=== PATIENT | female | born 1935 | race Caucasian/White ===

== ENCOUNTER 2016-08-27 22:23 | Inpatient (IN) | payer OTHER ==
[~2016-08-27] VITALS: Ht 160 cm; Wt 84.1 kg
--- NOTE | ~2016-08-27 | D ---
[facility] [place] [address] DISCHARGE SUMMARY Name: CHERELLE GEORGE Room #: 302-P [facility]..#: [id number] Admission: 08/28/16 Attend Phys: Robert Pacheco MD Discharge: 09/03/16 Date of : 35 Report #: [id number] THIS REPORT FOR: //name// CC: Robert Perla DATE OF SERVICE: 09/03/2016 SUMMARY OF HISTORY AND PHYSICAL: The patient has longstanding morbid obesity with chronic edema/lymphedema in both of her legs with longstanding venous ulcers that periodically escape outpatient management, become infected, and require inpatient management for intravenous fluids, intravenous antibiotics, pulsatile lavage, and twice daily dressing changes by registered nursing level staff. She chronically attends Dr. Beckman wound care chronic at this hospital. She was prescribed medications for her legs, one of which she thinks was levofloxacin twice a day and the other she thinks was a water pill. She really is not sure what they were or how she took them. They were prescribed a week or so before she was admitted. She developed an upset stomach that progressed to nausea and reduced appetite and weight loss as the days passed on. She came to the Emergency Room because of generalized malaise, feeling bad all over, nauseated, lightheadedness and chills/rigors. Her review of systems was negative otherwise, except for addition intermittent lower abdominal discomfort. In the emergency room, her creatinine was elevated at 3.4 with a potassium of 7.0, bicarbonate 15 and a BUN of 18. She required admission for treatment of her acute renal failure and hyperkalemia in addition to further therapy regarding her chronic leg ulcers that had progressed to the point where she needed additional diuretic and antibiotics. SUMMARY OF HOSPITAL COURSE: She was admitted and seen by the nephrology service. She was given standard therapy for hyperkalemia in the emergency room. As she left the Emergency Room, her potassium had ready begun to diminish. Over the next several days, her kidney function parameters returned to normal and her potassium level also returned to its baseline in the upper limits of normal range. Attention was turned to her infected legs. Cultures were obtained that revealed diphtheroids with scant methicillin-sensitive Staphylococcus aureus that was resistant to levofloxacin and ciprofloxacin. It was also resistant to ampicillin, erythromycin and penicillin, but sensitive to all other antibiotics tested including cephalosporins. Urine culture was 30,000 colony-forming units per mL with normal genito-urethral elisa. Blood cultures were negative. [facility] [address] [place] [address] DISCHARGE SUMMARY Name: CHERELLE GEORGE Room #: 302-P [facility]#: [id number] Admission: 08/28/16 Attend Phys: Robert Pacheco MD Discharge: 09/03/16 Date of : 35 Report #: [id number] She steadily improved. Discharge planning was mildly complex in that initially she refused to consider any options except returning to her own home with home health. However, she then recognized the necessity for advanced wound care there was not available in her home and her wound care physician, Dr. Theo Beckman, emphasized the benefits of a pulsatile lavage for cleaning tremendous amount of debris off of the surface of her wounds. In the hospital, she did have several treatments that did remove tremendous amount of nonviable debris. She had been to the [facility] in [place], [place] and did not agree with the treatment she felt she received from their internet network specialist. She did agree to go to the [facility] in [place] once it was established that they had a different wound care physician. Both facilities are LT and offered the pulsatile lavage that she needed for to heal her chronic leg ulcers. She reported that arterial Dopplers of her legs had recently been normal in the [facility], so they were not repeated. She was followed by Dr. Checo Rodrigues who treated her multiple times in the past for complex multi-microbial infections of her legs from infectious disease standpoint. On the first night in the hospital, she did have to strain at the stool and did have bright red blood streaks on the stool. A rectal examination several days later showed a few hemorrhoidal tags, but no masses, and there was no blood on the exam on the gloved finger either. The red blood on the outside stool resolved and was not present after the third hospital day. She also reported severe dental problems and pain with a few remaining teeth in her mouth. Oral examination did show multiple severely damaged carious teeth, a bridge was in place in the anterior mouth, and movement of the bridge produced some discomfort. She did not want to take her bridge out because she felt she would not even be able to chew bread, so she chose to leave it in while in the hospital. LABORATORY AND DIAGNOSTIC DATA: A single view chest in the Emergency Department showed degenerative changes in both shoulders, ectasia of the aorta, and was otherwise normal and unchanged from 01/24/2014. Admitting creatinine was 3.4, but 3 days later was back to baseline of 1.3. Admitting BUN was 118 and at discharge was 44, with baseline being 35. Potassium was 7 on admission, 6 hours later was 5.5, and was 4.7 at discharge. Baseline potassium is 4.7. EGFR was 13 on admission, and back to the baseline of 43 at discharge. Lactic acid was normal at 1.6. WBCs were 8.8 thousand on admission, hemoglobin was 10.8 and after rehydration [facility] [address] [place] [address] DISCHARGE SUMMARY Name: CHERELLE GEORGE Zaheer Room #: 302-P [facility] IN ..#: [id number] Admission: 08/28/16 Attend Phys: Robert Pacheco MD Discharge: 09/03/16 Date of : 35 Report #: [id number] was 8.8. Albumin was 2.8 on admission and dropped to 2.1 the following day with rehydration. Absolute lymphocyte count with a white count of 8800 and 5.2% lymphocytes, absolute lymphocyte count was 457. The low albumin and lymphocyte count fit the criteria for severe malnutrition. MRSA screen of the nares was negative. Urinalysis was negative. Random urine sodium was 65 with the random urine creatinine of 46.4 on August 28 with a serum sodium of 135 and creatinine of 3.2 gave a calculated for a fractional excretion of sodium that was 3.3%. ADDENDMUM: DISCHARGE DIAGNOSES: 1. Nausea, anorexia and weight loss, apparently caused by medications. 2. Acute renal failure with acute hyperkalemia caused by the volume depletion and weight loss. 3. Sepsis criteria were met on admission with tachypnea of 22 (over 20), tachycardia of 102 (over 90), left shift with 80% segmented neutrophils and a known bilateral leg ulcer infection. 4. Bright red blood appeared in the stool early in admission and requires an outpatient evaluation. 5. Severe malnutrition. 6. Severe dental problems contributing to her malnutrition. 7. A 3 cm right ovarian cyst was identified on CT scan from 2015. 8. The patient does not tolerate nonsteroidal anti-inflammatory drugs medications because of reduced renal function in the past and hyperkalemia in the past. 9. Severe dental degeneration leading to pain and difficulty and eating a proper diet. 10. Severe bilateral degenerative shoulder disease noted on the chest x-ray. 11. Glaucoma. 12. Dry eyes. 13. Osteoporosis. 14. Severe chronic morbid obesity. 15. Other multiple medical problems as recorded in the history and physical. PLAN: 1. The patient is transferred to [facility] in [facility] for wound care in that location. 2. Please see the discharge forms for specifics regarding current medications. 3. After she is stable and released, she is to have an evaluation regarding the source of the blood in her stools - digital rectal [address] [address] DISCHARGE SUMMARY Name: ARIELCHERELLE L Room #: 302-P [facility] IN .R.#: [id number] Admission: 08/28/16 Attend Phys: Robert Pacheco MD Discharge: 09/03/16 Date of : 35 Report #: [id number] examination was negative. 4. She is to have the 3 cm cyst on the right ovary evaluated as an outpatient. 5. Instructions were given to the nursing staff on the day of discharge to have her return to my office 2 weeks after she returns to her own home, and to bring medication list and offer pill bottle medications to that appointment. By: [id number] Robert Pacheco MD /nt
--- NOTE | ~2016-08-27 | H ---
[facility] [place] [address] HISTORY AND PHYSICAL Name: CHERELLE GEORGE Room #: 302-P [facility]..#: [id number] Admission: 08/28/16 Attend Phys: Robert Pacheco MD Discharge: 09/03/16 Date of : 35 Report #: [id number] THIS REPORT FOR: //name// CC: Robert Perla DATE OF SERVICE: 08/28/2016 C/C: Acute renal failure on chronic kidney disease with persistently infected chronic ulcers of both legs. HISTORY OF PRESENT ILLNESS: The patient reports that she was in her usual state of health until she began taking her two new medications last week. One medication was an antibiotic, "my doctor felt my legs were infected" and the other medication was most likely a diuretic because "my legs were swollen." She reports she began having nausea and reduced appetite and weight loss as the days passed. She came to the Emergency Room with generalized malaise, feeling bad all over, nausea, lightheadedness and feeling chills. Her review of systems was negative other than intermittent lower abdominal discomfort. The patient thinks that her antibiotic may have been Levaquin 500 mg twice daily. In the Emergency Room, her creatinine was elevated at 3.4 with a potassium of 7.0, bicarbonate of 15 and a BUN of 18. She required admission for treatment of her acute renal failure and hyperkalemia. She has had mild chronic kidney disease in the past and has at times experienced a creatinine as high as 3.0, but they were always due to nonsteroidal medications or volume depletion from diuretics, and her creatinine responded. Please see Dr. Valerio's Nephrology dictation that reviews two previous Nephrology dictations/consultations at [facility] over the last several years. The patient has a complex social situation that predisposes her to difficulties in healing her leg wounds. Her home has been described by multiple home health agency registered nurses as being a hoarder type home with the floor covered except for only a small cleared passage inbetween objects which to walk on. A recent home health registered nurse reported that the patient does not elevate her legs all the time: she was found with her legs hanging down while she was sleeping on a couch. The patient had reported that she skips her diuretics frequently because it is difficult to get to the bathroom. When one leg is severely swollen and oozing, she will place it in a trash bag and then use that trash bag to keep from dripping fluid all over the floor. She has been advised continually for years to clean up her home [place] [address] HISTORY AND PHYSICAL Name: CHERELLE GEORGE Room #: 302-P [facility] IN ..#: [id number] Admission: 08/28/16 Attend Phys: Robert Pacheco MD Discharge: 09/03/16 Date of : 35 Report #: [id number] healthy living situation, but has steadfastedly declined. Other past medical problems: Her major medical problem is that of morbid obesity. This has led to chronic swelling and lymphedema of her lower extremities. This has also lead to chronic nonhealing ulcers in both legs. She has had multiple hospitalizations to treat these ulcers. She also has type 2 diabetes that is well managed, she takes Premarin for hot flashes, she has a history of rheumatoid arthritis for which she has taken Plaquenil with good results for many years. She has hypertension, hyperlipidemia, gastroesophageal reflux disease, chronic kidney disease stage III with an outpatient baseline creatinine, chronic kidney disease stage 3-4, with an estimated GFR of 27 in March 2016. She has mild anemia of chronic disease with a baseline hemoglobin of 9.8. Her estimated GFR in November was 54 and her hemoglobin at that time was 10.4. Severe malnutrition was present when she was admitted May 14. As a complication of her obesity, she has severe end-stage osteoarthritis of both knees and is not an operative candidate. She has chronic low back pain. NSAID medications caused hyperkalemia in the past because of her chronic kidney disease. Intertriginous skin fold inflammation is long standing. Diabetic neuropathy treated with gabapentin or Lyrica. Macrocytosis without alcohol use/hypothyroidism/or B12 deficiency. She has marked debility with marked disuse muscle atrophy. Glaucoma, dry eyes treated with Restasis, seborrheic dermatitis of the face, seasonal allergies, asymptomatic bacteriuria. ALLERGIES: SULFA. SOCIAL HISTORY: She lives alone in her own home, described above as that of a hoarder. She does not drink nor smoke. Her son is helpful. MEDICATIONS: The list that follows comes from a list that she brought to the office, June that she had written at home: Pioglitazone 15 mg 1/2 tablet daily, acetaminophen 650 mg as needed and tramadol 50 mg as needed. Prempro or estradiol 0.5mg/medroxyprogesterone prescribed by Ethan Lewis MD/[facility] [employer] [facility], actonel 35mg weekly on sundays, atorvastatin 20 mg, lisinopril 40 mg twice daily, furosemide 40 mg twice daily ( she skips it at home), Aciphex 20 mg before breakfast, fexofenadine 180 mg as needed for allergies, hydroxychloroquine 200 mg twice daily, aspirin 81 mg daily, diltiazem extended release capsule 120 mg daily. Restasis bid both eyes, Xalatan 0.005% O.U. HS. [facility] [address] [place] [address] HISTORY AND PHYSICAL Name: CHERELLE GEORGE Room #: 302-P [facility]#: [id number] Admission: 08/28/16 Attend Phys: Robert Pacheco MD Discharge: 09/03/16 Date of : 35 Report #: [id number] Supplements include Biotin, zinc, B12, vitamin C, vitamin D, a multivitamin, vitamin K 100 mcg. PHYSICAL EXAMINATION: GENERAL: Shows an 81-year-old female who is clearly not feeling well in her hospital bed. At the time I examined, she was alert and oriented. HEENT: Her oropharynx was dry. NECK: Negative. LUNGS: Clear. CARDIOVASCULAR: The heart tones were normal and regular. ABDOMEN: Soft and nontender to examination. EXTREMITIES: The lower extremities had freshly been dressed. The feet were not covered with the dressings, and the skin appeared shrunken and wrinkled with multiple areas of pealing thick dry flakes. The appearance was suggestive of arterial insufficiency. Nail bed blanching was difficult to observe. NEUROLOGIC: No focal neurological deficits were identified, although formal testing was not performed. ASSESSMENT: 1. Acute renal failure/hyperkalemia from nausea/not eating/or direct effect of the medication she started last week. 2. Chronically infected foul draining of bilateral leg ulcers. 3. Possible arterial insufficiency to both lower legs. 4. Inflammatory arthritis by history responding to Plaquenil. 5. Morbid obesity. 6. End-stage osteoarthritis of both knees and she is not an operative candidate. 7. Severe disuse muscle atrophy and weakness. 8. Sulfa allergy. 9. Other medical problems as mentioned above. PLAN: The patient is admitted and is being treated for her hyperkalemia. The nephrology service has been consulted for management of fluids and her acute on chronic renal insufficiency. She will be seen in infectious disease by Dr. Rodrigues, who has managed multiple infections of her ulcers in the past. She wishes full resuscitation should her arrest be witnessed; being in the hospital on telemetry, rapid detection of an arrest would occur and she is therefore made a full Code blue to be consistent with her wishes. She will also be seen by Dr. Theo Beckman, her vocational rehabilitation specialist. <ELECTRONICALLY SIGNED> By: Robert Pacheco MD 11/02/16 [id number] Robert Pacheco MD /nt
--- NOTE | ~2016-08-27 | HC ---
[facility] [place] [address] CONSULTATION Name: CHERELLE GEORGE Room #: 302-P [facility] IN ..#: [id number] Admission: 08/28/16 Attend Phys: Robert Pacheco MD Discharge: Date of : 35 Report #: [id number] THIS REPORT FOR: //name// CC: Robert Perla DATE OF SERVICE: 08/28/2016 REASON FOR CONSULTATION: Acute kidney injury and hyperkalemia. HISTORY OF PRESENT ILLNESS: This is an 81-year-old female who was admitted through the emergency room from home. She has a rather complex medical history. She tells me she has been feeling weak for the past several days, appetite has been down, intake of food and fluids has been down. She has had some difficulty passing urine. Her biggest problem has been that of chronic lymphedema and she has been getting care for that for a very long time. Legs are actually significantly smaller than they had been in the past. Upon presentation, her creatinine level in the emergency room is 3.4, with that her sodium is 132, potassium 7.0, bicarb 15, BUN was 118. She was treated for her hyperkalemia and a repeat check several hours later at 4:05 in the morning showed potassium is 5.5, bicarbonate was 16, BUN was 117, creatinine is down to 3.2. The patient is aware that she has previously had some acute kidney injury and has also been seen previously by a couple of members of my group. The last that I can find was a consultation by Dr. Perla in [address] Haro in 2012. At that point, they both documented that she had some chronic kidney disease, thought due to diabetes and hypertension. She has morbid obesity. In each case, she had acute kidney injury with creatinine level over 3, but then both times she showed improvement. She has not had any recent nonsteroidal exposure. She has had no contrast exposures. She says she has been taking her medications, but again intake of food and fluids has been down. She has had some difficulty voiding urine and notes that she probably has some urinary retention as she voids a couple of times each time she goes to the commode one shortly after the other because she realizes she has not emptied her bladder fully. PAST MEDICAL HISTORY: Longstanding diabetes and hypertension. She has chronic obesity. She has chronic lymphedema of both legs. She has been getting care of those through Dr. Theo Beckman of wound care. She has some chronic arthritis and arthralgias. MEDICATIONS: On admission include aspirin 81 mg daily, Restasis eyedrops, diltiazem 120 mg daily, Colace, estrogen daily, furosemide 40 mg daily, hydrocodone p.r.n., Xalatan eyedrops, tramadol 50 mg p.r.n. [address] [address] CONSULTATION Name: CHERELLE GEORGE Room #: 302-P [facility] IN M.R.#: [id number] Admission: 08/28/16 Attend Phys: Robert Pacheco MD Discharge: Date of : 35 Report #: [id number] ALLERGIES: SULFA which causes a rash and pruritus. FAMILY HISTORY: Noncontributory. SOCIAL HISTORY: The patient is currently single. She lives in a local house. She is able to get around with difficulty, but does take care of many of her own chores. She does her own cooking. She does have some help that comes on a regular basis. REVIEW OF SYSTEMS: Appetite has been down. She says she has been having problem with her teeth and her dentures and hence has had difficulty getting in as much food as she would like. Intake of fluids has also been down. She had some loose stools recently. No diarrhea overnight or this morning. She has urinary symptoms as noted above with retention of urine after voiding. She denies fevers, chills or sweats. She has mild dyspnea with exertion. No chest pain or palpitations. She says she gets her legs wrapped regularly and they are actually looking much better than they had historically. No recent change to her vision or hearing. PHYSICAL EXAMINATION: GENERAL: Elderly, chronically ill-appearing female lying supine, no distress at this time. VITAL SIGNS: Blood pressure 135/56, heart rate 106, temperature 99.0, oxygen saturation 99%. HEENT: Shows pupils are equal and reactive. Sclerae nonicteric. Oral mucosa is somewhat dry. NECK: Veins are not distended. Neck is supple, no adenopathy. CHEST: Fairly clear bilaterally. HEART: Regular rate and rhythm. ABDOMEN: Obese. There is an umbilical hernia present that is easily reduced and is mildly tender. Bowel sounds are present. She does not have substantial abdominal wall edema. I am unable to palpate organomegaly or masses. EXTREMITIES: Show chronic lymphedema changes both legs, they are wrapped from the ankle to the knee. The feet show very substantial wrinkling consistent with decrease in volume after chronic edema. Thighs show no edema at this time, although they continue to be very large. NEUROLOGIC: She is grossly intact. LABORATORY DATA: On initial presentation, sodium 132, potassium 7.0, chloride 102, bicarbonate 15, BUN 118, creatinine 3.4, calcium 9.7, total protein 7.5, albumin 2.8. On repeat at 0400, sodium 135, potassium 5.5, chloride 104, bicarbonate 16, BUN 117, creatinine 3.2, glucose 122, calcium 9.3. White count is 8.8, hemoglobin 10.8, hematocrit 32.8, platelets 253,000. Urinalysis from the emergency room; specific gravity 1.025, pH 5.5 with a negative dipstick. ASSESSMENT: [facility] [address] [place] [address] CONSULTATION Name: CHERELLE GEORGE Room #: 302-P [facility] IN [facility]#: [id number] Admission: 08/28/16 Attend Phys: Robert Pacheco MD Discharge: Date of : 35 Report #: [id number] 1. Acute hyperkalemia. Potassium levels very high on admission and is related to her volume depletion and acute kidney injury. She has not been on potassium supplementations. She has not been on potassium-sparing diuretics. She previously had been on an LUI inhibitor, but is not on that now. She was treated in the emergency room and a repeat potassium is much better. We will repeat again. 2. Acute kidney injury. This is on top of some chronic kidney disease. Most of the acute phase is due to use of diuretics to get her volume improved because of her lower extremities. This has left her somewhat in intravascularly dry. I cannot find evidence of nephrotoxic exposures or contrast exposures or nonsteroidals. 3. Chronic kidney disease, likely stage 3. She does not have proteinuria. There was nothing of remarkable findings in her urine, but she has demonstrated creatinine in the 1.3-1.5 range over the past 5-6 years, all consistent with chronic kidney disease 3. 4. Chronic lymphedema of lower extremities. The legs are actually fairly small at this time. We will make sure in giving her volume that we do not increase her edema that much. 5. Longstanding diabetes. 6. Prior hypertension. We will hold back on her antihypertensive medications at this time. 7. Morbid obesity. PLAN: 1. We will continue her current IV fluids, 80 mL an hour is fine. 2. Recheck potassium level. 3. Check fractional excretion of sodium. 4. We will hold her diuretics. 5. Repeat labs in the morning. 6. We will follow along closely in the care of this patient. <ELECTRONICALLY SIGNED> By: Harry Valerio MD 08/29/16 0853 [id number] Harry Valerio MD /nt
--- NOTE | ~2016-08-27 | EKG ---
[address] [place] [address] ELECTROCARDIOGRAM REPORT Name: GEORGECHERELLE L Room #: 302-P ADM IN M.R.#: [id number] Admission: 08/28/16 Attend Phys: Robert Pacheco MD Discharge: Date of : 35 Report #: [id number] THIS REPORT FOR: //name// [facility] ED Test Date: 2016-08-28 Test Time: 00:06:47 Pat Name: CHERELLE GEORGE Department: Room: 302 Gender: F Ammonia Technician: elena : 1935 Requested By: Morena Corbett Order Number: [id number] MD: Solo Rodrigues Measurements Intervals [employer] Rate: 83 P: MD: QRS: 21 QRSD: 90 T: 62 QT: 351 QTc: 413 Interpretive Statements Atrial fibrillation Minimal ST elevation, inferior leads Baseline wander in lead(s) V1 No previous ECG available for comparison Electronically Signed On 08-28-2016 8:23:26 [address] MANAGER by Solo Rodrigues [email or web address] <ELECTRONICALLY SIGNED> By: Solo Rodrigues MD 08/28/16 0823 D: 015 Solo Rodrigues MD /HUA
--- NOTE | ~2016-08-27 | HC ---
[facility] [place] [address] CONSULTATION Name: CHERELLE GEORGE Room #: 302-P ADM IN M.R.#: [id number] Admission: 08/28/16 Attend Phys: Robert Pacheco MD Discharge: Date of : 35 Report #: [id number] THIS REPORT FOR: //name// CC: Robert Perla DATE OF SERVICE: 08/28/2016 ATTENDING PHYSICIAN: Robert Pacheco MD. REASON FOR CONSULTATION: Stasis dermatitis, question cellulitis of legs. HISTORY OF PRESENT ILLNESS: The patient is an 81-year-old white woman known to me from multiple previous hospitalizations at [facility] and [facility]. The patient apparently has visited with Dr. Theo Beckman recently and she believes she was prescribed Levaquin 500 mg twice daily and another medication that started with letter C and she does not know the strength or what the medication was for. Anyways, she blamed these medications for what had happened to her. She had been on these drugs for some 3-4 days and now, she is admitted through the Emergency Room complaining of feeling unwell, extremely weak and found to be in acute kidney injury with significant azotemia and hyperkalemia. The patient lives by herself. She has some visiting nurse that replaced dressing on legs at intervals. She has chronic stasis dermatitis. Cultures of the leg ulceration had revealed Pseudomonas aeruginosa, MRSA on 01/2014. She had slow Enterobacter cloacae, Gemella and Stenotrophomonas maltophilia on 05/14/2016. PAST MEDICAL HISTORY: Previous episodes of cellulitis of lower extremities, chronic stasis dermatitis legs, diabetes mellitus. Chronic kidney disease. Morbid obesity. Rheumatoid arthritis, on hydroxychloroquine. Osteoporosis. B12 deficiency. Glaucoma. Dyslipidemia and atrial fibrillation. DRUG ALLERGIES: SULFA DRUGS, LUI WRAP. MEDICATIONS: She is currently on treatment with latanoprost eye drops, docusate, cyclosporine eye drops, tramadol p.r.n., insulin aspart a.c. and at bedtime, ondansetron p.r.n., nystatin topical, acetaminophen p.r.n., intravenous fluids, normal saline at 1000 mL every 12 hours, tramadol p.r.n., ondansetron p.r.n. as well as sodium bicarbonate were discontinued. Not on antibiotics currently. SOCIAL HISTORY: Lives by herself. She has nurse. No tobacco, no alcohol. REVIEW OF SYSTEMS: Denies nausea, vomiting. Extreme weakness and dehydration feeling. Legs are rather painful and she has been [place] [address] CONSULTATION Name: CHERELLE GEORGE Room #: 302-P [facility]#: [id number] Admission: 08/28/16 Attend Phys: Robert Pacehco MD Discharge: Date of : 35 Report #: [id number] a daily basis. PHYSICAL EXAMINATION: GENERAL: Chronically ill-appearing woman. VITAL SIGNS: Temperature 99, pulse 106, respirations 20, BP 135/56, O2 saturation 99% on room air. HEENMT: Head: Normocephalic and atraumatic. Pupils reactive. Mouth: Moist mucous membrane. NECK: Supple, no thyromegaly. LUNGS: Clear to auscultation. HEART: S1, S2. No gallop. ABDOMEN: Obese, soft, no masses or megaly, no abnormal tenderness. EXTREMITIES: Reveal stasis ulceration both legs, definitely worse compared to last time she was seen at [facility]. Erythematous changes on legs, no purulence noted. NEUROLOGIC: Grossly within normal limits. LABORATORY DATA: On admission, sodium 132, potassium 7, CO2 15, BUN 118, creatinine 3.4, glucose 82, albumin 2.8 g/dL. Repeat laboratory data today revealed sodium 135, potassium down to 5.5, BUN down to 117 and creatinine 3.2. WBC 8800, hemoglobin 10.8 g/dL, platelets 253,000. The white blood cell count differential revealed 86% neutrophils, 5% lymphocytes. MRSA by PCR pending. Urinalysis negative. MICROBIOLOGY DATA: Cultures were sent from leg wounds and they are pending at the time of this dictation; previously in 04/2016, the patient had Enterobacter cloacae and Stenotrophomonas maltophilia isolated from leg wounds. ASSESSMENT: 1. Stasis dermatitis ulceration, legs. 2. History of leg ulcer infection colonization with Enterobacter cloacae, Gemella species and Stenotrophomonas maltophilia. 3. Acute kidney injury. 4. Hyperkalemia, improved. 5. Malnutrition. SUGGESTIONS: Recommend intravenous fluids, continue local wound care with daily dressing changes, pressure dressings. We will cover for possibility of infection with Enterobacter and Pseudomonas and Stenotrophomonas maltophilia with Rocephin ceftazidime 1 g IV every 12 hours, local wound care per Dr. Theo Beckman. [facility] [address] [place] [address] CONSULTATION Name: CHERELLE GEORGE Room #: 302-P ADM IN M.R.#: [id number] Admission: 08/28/16 Attend Phys: Robert Pacheco MD Discharge: Date of : 35 Report #: [id number] Pacheco, thank you for requesting my suggestion. <ELECTRONICALLY SIGNED> By: Checo Rodrigues MD 08/28/16 1340 [id number] [id number] Checo Rodrigues MD /nt
[~2016-08-27 22:23] MED LIST: ACETAMINOPHEN325 M1 PO; ACIPHEX 20 MG T20 MG PO; ACTONEL 35 MG35 M1 PO; ACTONEL PO; ACTOS15 MG PO; ALLEGRA ALLERG180 MG PO; ALLEGRA180 MG PO; ALTACE PO; APAP500 PO; ATIVAN1 MG PO; AUGMENTIN 875-1 EACH PO; BIOTIN1 MG PO; BUMETANIDE 1 MG1 M1 PO; CALCIUM 500 +1 EAC5 PO; CALCIUM OYSTER500 MG PO; CALCIUM PO; CATHFLO ACT2 MG/VIAL INJECTION; CLOTRIMAZOLE-BE15 GM TOP; COLACE100 MG PO; DILTIAZEM ER120 M1 PO; DOXYCYCLINE 10100 M1 PO; DYNACIN100 MG PO; ECONAZOLE 1% CR30 G1 TP; ENOXAPARIN30 MG/0.1 SUBQ; ESTRACE0.5 MG PO; ESTRACE1 MG PO; FISH OIL 1,001000 M2 PO; FLUCONAZOLE 10100 MG PO; FUROSEMIDE 20 M20 M1 PO; FUROSEMIDE 20 M20 MG PO; Fluconazole PO; GLUCOPHAGE XR500 MG PO; HYDROCODON-ACE1 EA11 PO; HYDROCODON-ACE1 EAC7 PO; HYDROXYCHLOROQ200 M1 PO; IRON325 PO; K-DUR 20 MEQ T20 MEQ PO; LEVAQUIN 500 M500 M3 PO; LIPITOR 20 MG T20 M1 PO; LIPITOR10 MG PO; LIPITOR20 MG PO; LISINOPRIL40 MG PO; LORTAB 5 MG/5001 TA1 PO; LOW DOSE ASPIRI81 M1 PO; LYRICA100 MG PO; MEDROL2 MG PO; MEDROXYPROGEST2.5 MG PO; MELOXICAM7.5 MG PO; METFORMIN PO; MULTIVITAMINS PO; NAPROSYN500 MG PO; NEURONTIN 300300 M1 PO; NYAMYC15 GM TOP; NYSTATIN15 G1 TOP; PAXIL10 MG; PERCOCET 5-3251 EACH PO; PIPERACIL-TA3.375 GM IV; PROVERA2.5 MG PO; RESTASIS1 EACH OP; RESTASIS1 EACH OPHTHALMIC; TOBRADEX EYE DRO5 ML OP; TRAMADOL 50 MG50 MG PO; TRIAMCINOLONE A80 G2 TOP; VANCOMYCIN500 MG/VIA IV; VITAMIN C250 MG PO; VITAMIN D-32000 UNIT PO; VOLTAREN GEL 1100 G1 TOP; XALATAN2.5 ML OPHTHALMIC; ZANTAC 150MG T150 MG PO; ZINC50 M1 PO; ZINC50 MG PO
[2016-08-27 22:33] VITALS: BP 130/91
[2016-08-27 23:48] LABS: ABSOLUTE NEUTROPHILS 7.6 thou/uL (1.4-8.2); BASOPHILS 0.3 % (0.0-2.0); EOSINOPHILS 0.2 % (0.0-3.0); HEMATOCRIT 32.8 % (37.0-47.0); HEMOGLOBIN 10.8 gm/dL (12.0-15.0); LYMPHOCYTES 5.2 % (24.0-44.0); MCH 32.5 pg (26.0-34.0); MCV 98.6 fL (80.0-100.0); PLATELET COUNT 253 thou/uL (150-400); POLYS 86.3 % (36.0-66.0); RBC 3.33 mil/uL (4.20-5.00); WBC 8.8 thou/uL (4.0-11.0)
[2016-08-27 23:49] LABS: MANUAL DIFF NO
[2016-08-27 23:56] LABS: ALBUMIN 2.8 g/dL (3.4-5.0); CALCIUM 9.7 mg/dL (8.5-10.1); CREATININE 3.4 mg/dL (0.6-1.3); TOTAL BILIRUBIN 0.4 mg/dL (<0.1-1.0); TOTAL PROTEIN 7.5 g/dL (6.4-8.2)
[2016-08-28 00:22] LABS: URINE BILIRUBIN NEGATIVE (Negative); URINE BLOOD NEGATIVE (Negative); URINE COLOR YELLOW; URINE GLUCOSE-RANDOM* NEGATIVE (Negative); URINE KETONES NEGATIVE (Negative); URINE NITRITE NEGATIVE (Negative); URINE PROTEIN (DIPSTICK) NEGATIVE (Negative); URINE SPECIFIC GRAVITY 1.025 (1.003-1.035); URINE UROBILINOGEN 0.2 E.U./dl (0.2-1.0)
[2016-08-28] MEDS ORDERED: PREMPRO 0.3 MG1 EACH PO (03:24)
[2016-08-28] MEDS ORDERED: LASIX 40 MG TAB40 M2 PO (03:27)
[2016-08-28 04:41] LABS: CALCIUM 9.3 mg/dL (8.5-10.1); CREATININE 3.2 mg/dL (0.6-1.3); POTASSIUM 5.5 mmol/L (3.5-5.1)
[2016-08-28 08:13] VITALS: BP 135/56
[2016-08-28 15:15] VITALS: BP 124/50
[2016-08-28 18:11] LABS: URINE CREATININE-RANDOM* 46.4 mg/dL (Not Estab.)
[2016-08-28 20:00] VITALS: BP 99/49
[2016-08-29] VITALS: BP 106/45
[2016-08-29 04:00] VITALS: BP 127/61
[2016-08-29 05:53] LABS: ALBUMIN 2.1 g/dL (3.4-5.0); CALCIUM 8.8 mg/dL (8.5-10.1); PHOSPHORUS 3.1 mg/dL (2.5-4.9); POTASSIUM 5.4 mmol/L (3.5-5.1)
[2016-08-29 05:56] LABS: CREATININE 1.9 mg/dL (0.6-1.3)
[2016-08-29 07:05] LABS: HEMATOCRIT 26.1 % (37.0-47.0); MCH 32.9 pg (26.0-34.0); MCHC 33.7 % (28.0-37.0); MCV 97.5 fL (80.0-100.0); RBC 2.67 mil/uL (4.20-5.00); RDW 12.8 % (10.5-14.5); WBC 5.8 thou/uL (4.0-11.0)
[2016-08-29 07:07] LABS: HEMOGLOBIN 8.8 gm/dL (12.0-15.0)
[2016-08-29 09:41] VITALS: BP 109/54
[2016-08-29 13:14] VITALS: BP 120/59
[2016-08-29 16:35] VITALS: BP 135/73
[2016-08-29 21:56] VITALS: BP 107/56
[2016-08-30 03:20] VITALS: BP 115/59
[2016-08-30 06:30] LABS: ALBUMIN 1.9 g/dL (3.4-5.0); CALCIUM 8.9 mg/dL (8.5-10.1); CREATININE 1.3 mg/dL (0.6-1.3); PHOSPHORUS 2.5 mg/dL (2.5-4.9); POTASSIUM 5.4 mmol/L (3.5-5.1)
[2016-08-30 13:09] VITALS: BP 138/59
[2016-08-30 18:15] VITALS: BP 126/70
[2016-08-30 20:10] VITALS: BP 113/57
[2016-08-31 03:30] VITALS: BP 129/67
[2016-08-31 04:36] LABS: ALBUMIN 1.9 g/dL (3.4-5.0); CREATININE 1.3 mg/dL (0.6-1.3); PHOSPHORUS 2.5 mg/dL (2.5-4.9); POTASSIUM 5.1 mmol/L (3.5-5.1)
[2016-08-31 08:07] VITALS: BP 113/52
[2016-08-31 11:00] VITALS: BP 113/45
[2016-08-31 16:28] VITALS: BP 105/60
[2016-08-31 19:01] VITALS: BP 119/50
[2016-09-01 04:00] VITALS: BP 113/49
[2016-09-01 06:01] LABS: ALBUMIN 1.8 g/dL (3.4-5.0); CALCIUM 8.9 mg/dL (8.5-10.1); CREATININE 1.2 mg/dL (0.6-1.3); PHOSPHORUS 3.1 mg/dL (2.5-4.9); POTASSIUM 4.8 mmol/L (3.5-5.1)
[2016-09-01 10:41] VITALS: BP 105/55
[2016-09-01 12:50] VITALS: BP 119/56
[2016-09-01 16:00] VITALS: BP 116/73
[2016-09-01 21:00] VITALS: BP 103/61
[2016-09-02 06:00] VITALS: BP 122/72
[2016-09-02 06:17] LABS: ALBUMIN 1.9 g/dL (3.4-5.0); CALCIUM 8.6 mg/dL (8.5-10.1); CREATININE 1.2 mg/dL (0.6-1.3); POTASSIUM 4.7 mmol/L (3.5-5.1)
[2016-09-02 08:50] VITALS: BP 119/81
[2016-09-02 09:00] VITALS: BP 119/53
[2016-09-02 12:00] VITALS: BP 108/83
[2016-09-02 16:00] VITALS: BP 107/62
[2016-09-02] MEDS ORDERED: TORSEMIDE20 MG PO (16:31)
[2016-09-02] MEDS ORDERED: TRAMADOL 50 MG50 MG PO (16:31)
[2016-09-02] MEDS ORDERED: NYAMYC15 GM TOP (16:31)
[2016-09-02] MEDS ORDERED: ENOXAPARIN30 MG/0.1 SUBQ (16:31)
[2016-09-02] MEDS ORDERED: AMPICILLIN-SUL1.5 GM IV (16:35)
[2016-09-02] MEDS ORDERED: MORPHINE TOP (17:55)
[2016-09-02] MEDS ORDERED: [UNRECOGNIZED DRUG - OTHER] TOP (17:55)
[2016-09-02 21:10] VITALS: BP 117/60
[2016-09-03 04:39] VITALS: BP 124/60
[2016-09-03 09:08] VITALS: BP 102/54
== END 2016-09-03 13:45 | DRG 682 ==
LOC: ER 22:23 → EROBS 08-28 00:15 → 3N 08-28 00:15
PROVIDERS: Hospitalist; Internal Medicine; Internal Medicine Nephrology; Physician Assistant
DX: N17.9 Acute kidney failure, unspecified (principal); E43 Unspecified severe protein-calorie malnutrition; L03.116 Cellulitis of left lower limb; L03.115 Cellulitis of right lower limb; L98.499 Non-pressure chronic ulcer of skin of other sites with unspecified severity; R11.0 Nausea; E78.5 Hyperlipidemia, unspecified; I48.91 Unspecified atrial fibrillation; H40.9 Unspecified glaucoma; G89.29 Other chronic pain; D64.9 Anemia, unspecified; E87.5 Hyperkalemia; E66.01 Morbid (severe) obesity due to excess calories; I89.0 Lymphedema, not elsewhere classified; Z60.2 Problems related to living alone; M17.0 Bilateral primary osteoarthritis of knee; I87.2 Venous insufficiency (chronic) (peripheral); M54.5 Low back pain; E11.40 Type 2 diabetes mellitus with diabetic neuropathy, unspecified; M81.0 Age-related osteoporosis without current pathological fracture; I10 Essential (primary) hypertension; F41.9 Anxiety disorder, unspecified; M06.9 Rheumatoid arthritis, unspecified; Z88.8 Allergy status to other drugs, medicaments and biological substances; Z86.14 Personal history of Methicillin resistant Staphylococcus aureus infection; Z79.899 Other long term (current) drug therapy; Z79.82 Long term (current) use of aspirin; Z68.32 Body mass index [BMI] 32.0-32.9, adult; Z88.2 Allergy status to sulfonamides; I12.9 Hypertensive chronic kidney disease with stage 1 through stage 4 chronic kidney disease, or unspecified chronic kidney disease; N18.3 Chronic kidney disease, stage 3 (moderate)
CPT/HCPCS: 10096

== ENCOUNTER → 2016-11-18 | Outpatient (CLI) | payer OTHER ==
[~2016-11-18] MED LIST changes: +AMPICILLIN-SUL1.5 GM IV; +LASIX 40 MG TAB40 M2 PO; +MORPHINE TOP; +PREMPRO 0.3 MG1 EACH PO; +TORSEMIDE20 MG PO; +[UNRECOGNIZED DRUG - OTHER] TOP
== END ==
LOC: HYPER 11-13 11:43
DX: I87.333 Chronic venous hypertension (idiopathic) with ulcer and inflammation of bilateral lower extremity (principal); E11.622 Type 2 diabetes mellitus with other skin ulcer; L97.812 Non-pressure chronic ulcer of other part of right lower leg with fat layer exposed; L97.821 Non-pressure chronic ulcer of other part of left lower leg limited to breakdown of skin; I89.0 Lymphedema, not elsewhere classified; M19.90 Unspecified osteoarthritis, unspecified site; E11.42 Type 2 diabetes mellitus with diabetic polyneuropathy; M06.9 Rheumatoid arthritis, unspecified; I48.91 Unspecified atrial fibrillation; E78.5 Hyperlipidemia, unspecified; E66.01 Morbid (severe) obesity due to excess calories; M81.0 Age-related osteoporosis without current pathological fracture; E11.22 Type 2 diabetes mellitus with diabetic chronic kidney disease; N18.9 Chronic kidney disease, unspecified

== ENCOUNTER 2016-12-12 18:00 | Inpatient (IN) | payer OTHER ==
[~2016-12-12] VITALS: Ht 160 cm; Wt 99.6 kg
--- NOTE | ~2016-12-12 | D ---
[facility] [place] [address] DISCHARGE SUMMARY Name: CHERELLE GEORGE Room #: 433-I [facility] IN ..#: [id number] Admission: 12/12/16 Attend Phys: Robert Pacheco MD Discharge: 12/17/16 Date of : 35 Report #: [id number] THIS REPORT FOR: //name// CC: Roxana Mike Beckman MD DATE OF SERVICE: 12/17/2016 SUMMARY OF HISTORY AND PHYSICAL: This was one of many hospitalizations for the patient because of chronic bilateral lower leg ulcers and lymphedema and cellulitis. Several days prior to admission, her leg swelling had increased along with redness and warmth in the formation of a spontaneous purulent discharge. Her home health nurse saw her early on the day of admission and sent her to the Emergency Department. She was found to have increased swelling, and redness, open ulcers and increased pain in her legs, as well as a purulent discharge and was felt to have acute cellulitis and infection of both legs and required admission for intravenous medications, aggressive topical treatments to the legs and intravenous antibiotics. She was also noted to have a change in creatinine that fit the criteria of acute renal failure as well as hyperkalemia. These medical problems also mandated in hospital therapy. SUMMARY OF HOSPITAL COURSE: She was seen on the day of admission by her pulmonary disease specialist, Dr. Theo Beckman. He found her to have chronic ulcerations on the left greater than the right with involvement of the fat layer of the left leg, limited to the skin on the right leg. He found chronic venous insufficiency with edema. He noted that the patient was experiencing pain in her legs and had refused pulse lavage. He ordered morphine and Silvadene compounded cream to both lower extremities and detailed wound care dressings. He ordered Kerlix and Marcos from toes to knee to help with the edema. He agreed with IV antibiotics and added protein supplementation for healing and pain. The following day, she had improved simply with her legs being elevated and wrapped. She complained about her nursing care without any specifics. She also complained about the school system, that no longer where children being taught how to write cursive, and expressed general unhappiness with the world. She did however thinks that the oranges that came with her lunch were tasty. Vancomycin dosing was directed by the Pharmacy Department. The following day, she praised the nursing staff for the care that she had received during her entire stay up to that point. On 12/16/2016, she allowed pulse lavage to be performed and was very pleased with the results. She had [address] [address] DISCHARGE SUMMARY Name: CHERELLE GEORGE Zaheer Room #: 433-I [facility] IN M.R.#: [id number] Admission: 12/12/16 Attend Phys: Robert Pacheco MD Discharge: 12/17/16 Date of : 35 Report #: [id number] special words of praise for the staff member who performed her pulse lavage. She was given intravenous fluids on admission without other specific therapy. Her creatinine normalized as did her serum potassium. Arrangements were made for her to return to the [facility]. She did acknowledge that she had refused pulse lavage on her hospital day #1 even though intravenous morphine was available as an analgesic. LABORATORY DATA: Blood cultures were negative and cultures of the legs grew Pseudomonas aeruginosa that was sensitive to all antibiotics tested. She also grew diphtheroids, presumed sensitive to multiple antibiotics. Note is made that the Gram stain showed rare WBCs, a few squamous epithelial cells, rare gram-negative rods and a few gram-positive rods. Her potassium on admission was 5.8 and with rehydration with intravenous fluids it normalized by the time of discharge at 5.1 (3.5-5.1 in our institution). Her creatinine was elevated at 1.8 on admission, with rehydration returned to baseline, actually slightly lower than the baseline of 1.2 to a value of 1.1 prior to discharge, this qualifies for the greater than 0.3 change in creatinine to qualify to determine acute renal failure. Her eGFR was 27 on admission and 48 at discharge. Her albumin measured after rehydration was low at 2.4, qualifying for severe malnutrition. On admission, her absolute lymphocyte count was 14% of 8400, or 1176, also fulfilling the criteria for severe malnutrition with lymphopenia under 1500. Hemoglobin was 10.3 on admission and 10.4 at discharge. She was not transfused. Vancomycin random level was not elevated at 13 and the culture returned pseudomonas, the vancomycin was discontinued. Portable chest x-ray was normal. She did have the PICC line placed by the IV team. DISCHARGE DIAGNOSES: 1. Acute renal failure that resolved with IV fluid replacement. 2. Volume depletion, resolved with IV fluid replacement. 3. Hyperkalemia, resolved with IV fluid replacement. 4. Chronic kidney disease stage 3--stable after fluid volume returned to normal. 5. Chronic kidney disease/diabetes: 6. She is prone to hyperkalemia and does not tolerate nor need potassium replacement. She also is sensitive to NSAID medications, and will develop reduction in renal function as well as an increase in potassium if she is given NSAID medications. 7. Severe malnutrition was present on admission, and revealed with intravenous [facility] [address] [place] [address] DISCHARGE SUMMARY Name: CHERELLE GEORGE Room #: 433-I [facility]#: [id number] Admission: 12/12/16 Attend Phys: Robert Pacheco MD Discharge: 12/17/16 Date of : 35 Report #: [id number] fluid replacement. 8. Pseudomonas aeruginosa infection of the left leg. 9. Bilateral chronic ulcers. 10. Noncompliance has been documented by the home health nursing staff with elevation (she allows her legs to dangle and swell) and sodium restriction for her swelling (commonly home health staff documents presence of a high sodium food on their visit). 11. Type 2 diabetes that is actually well controlled. 12. Chronic morbid obesity. 13. Chronic lymphedema of both lower legs. 14. History of MRSA and Enterococcus faecalis (sensitive to ampicillin and vancomycin) on 01/24/2014. 15. She is on hormone replacement therapy by her rolled seat trimmer. 16. Longstanding morbid obesity. 17. Longstanding venous insufficiency. 18. Poor home situation that she perpetuates. Her floor is cluttered and has the appearance of being a hoarder. 19. At times her personality and behavior has been confrontational to the health care workers that visit her at home, as well as occasionally health care workers in the hospital setting, and health care worker in outpatient physician office setting. 20. Bright red blood in the stool on 08/28/2016 admission--she has not scheduled her colonoscopy to determine the source of the bleeding, although it has been discussed with her and the contact telephone numbers have been given to her. 21. Note is made that her rectal examination on the hospital stay was negative except for few small hemorrhoidal tags and that the bright red blood in the stool persisted only for 2 to 3 days on that hospital stay. 22. 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 23. She reports normal arterial Dopplers of the legs in the [facility] physician office complex in July 2016. 24. She often does not take her diuretics because of the difficulty she has getting to the bathroom. 25. If her leg is severely swollen and oozing she will place it in a trash bag using the trash bag to keep the fluid from dripping all over the floor of her home. 26. Her Premarin is prescribed by her rolled seat trimmer, Dr. Ethan Lewis of [facility] Review Trainer Department for hot flashes. 27. She reports a history of rheumatoid arthritis, that is benefited by Plaquenil. 28 Hypertension. 29. Hyperlipidemia. 30. GERD. 31. Anemia of chronic disease. 32. Macrocytosis. 33. History in the past of episodes of severe malnutrition. [address] [address] DISCHARGE SUMMARY Name: CHERELLE GEORGE Room #: 433-I [facility].#: [id number] Admission: 12/12/16 Attend Phys: Robert Pacheco MD Discharge: 12/17/16 Date of : 35 Report #: [id number] 34. Morbid obesity with a BMI of 38, calculated by her information given in her August hospital stay. 35. Dry eyes. 36. Glaucoma. 37. Chronic low back pain. 38. Intermittent intertriginous skin fold inflammation from her abdominal pannus. 39. Diabetic neuropathy treated with gabapentin and/or Lyrica. 40. History of asymptomatic bacteriuria. 41. Seborrheic keratosis of the face. 42. 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 43. Severe disuse muscle atrophy and debility. 44. Osteoporosis. 45. Symptomatic restless legs symptoms. 46. SULFA allergy. 47. Grade 2 systolic ejection murmur is stable. DISCHARGE PLANS: She is discharged to [facility] facility. She is to get pulse lavage, and she is instructed to insist that it be started on a timely fashion. She is to get physical therapy and occupational therapy as well as continue intravenous medications and antibiotics. MEDICATIONS: Morphine 2 mg IV every 4 hours as needed for pain and for pretreatment for her pulse lavage, Toradol 50 mg 1 every 4 hours as needed for pain. Vitamin C 500 mg once daily for her nutritional status and she is also to have a full protein powder packet once daily for her nutritional status. Diltiazem extended release 120 mg once daily for blood pressure, 81 mg of aspirin daily, stool softener once daily. Cyclosporine eyedrops 1 drop in each eye twice daily for dry eyes. Latanoprost (Xalatan) one drop each eye at bedtime, zinc 50 mg daily for nutrition. Prempro 0.3/1.5 mg once daily, Lovenox 30 mg once daily, nystatin powder topically as needed for itching and intertriginous dermatitis, ampicillin and sulbactam 1.5 grams IV every 8 hours, Silvadene/morphine compounded ointment to both legs twice daily. She is to follow up with Dr. Theo Beckman in 2-4 weeks after returning home, she is to see me in my office 2 weeks after returning home, she is to make an appointment for colonoscopy with Dr. Dk Lazaro through his office, because of her episode of a toya rectal bleeding. By: [id number] Robert Pacheco MD /nt
--- NOTE | ~2016-12-12 | H ---
[facility] [place] [place] [address] HISTORY AND PHYSICAL Name: CHERELLE GEORGE Room #: 433-I [facility].#: [id number] Admission: 12/12/16 Attend Phys: Robert Pacheco MD Discharge: 12/17/16 Date of : 35 Report #: [id number] THIS REPORT FOR: //name// CC: Robert Pacheco DATE OF SERVICE: 12/13/2016 CHIEF COMPLAINT: Hyperkalemia, acute kidney injury and cellulitis. HISTORY OF PRESENT ILLNESS: This is one of many hospitalizations for the patient due to chronic bilateral lower leg ulcers and cellulitis. She is followed chronically by Dr. Theo Beckman in his wound clinic and please see his dictated consultation for more specific details. He saw her in his office approximately 2 weeks ago and at that time, both of her legs appeared to have open ulcerations, but no signs of cellulitis. Over the last several days prior to admission, her swelling increased, along with increased redness and warmth and the formation of a spontaneous discharge as well. Her home health nurse was concerned about this change and referred her to the emergency department. She was found to have oozing from her legs, the left more than the right and required admission for intravenous antibiotics and careful wound therapy. At the same time, she was also found to have an acute kidney injury or acute renal failure with a decrease in her kidney function as well as hyperkalemia. Because of these changes, admission is indicated. PAST MEDICAL HISTORY: She has had long-standing morbid obesity, that over the last 10 years has taken its toll. She has long-standing venous insufficiency and lymphedema of both of the lower legs. Skin breakdown began years ago and responded to more simple therapies, but over the last several years, has not been able to ever get completely healed. She makes progress. Unfortunately, she seems to be stuck in a cycle where her legs get worse, like they are now with the development of a eschar and purulent secretions, which are then cleaned and debrided with appropriate dressing changes begin to heal. This seems to then occur about the time she is ready to return to her own home from a facility. At that time, it seems like her gains are invariably lost sooner or later and the cycle starts again, with a worsened drainage, infection and cellulitis in her legs. Her home situation is difficult, is reported that the floor is cluttered, except for a few walking paths through her house, and that she has often been witnessed by home health visitors to sit or sleep with her legs dangling instead of with her legs elevated. Additionally, she has been found to have high salt-containing food in her home. Most recent hospital stay, she was constipated and after straining at the stool, developed blood in her stools. Rectal examination at the end hospital stay showed a few small hemorrhoidal tags that were not bleeding externally and no palpable abnormalities were identified inside the rectum either. There was no blood on the gloved finger. She has not had a colonoscopy in quite some time. [address] [address] HISTORY AND PHYSICAL Name: CHERELLE GEORGE Room #: 433-I [facility] IN ..#: [id number] Admission: 12/12/16 Attend Phys: Robert Pacheco MD Discharge: 12/17/16 Date of : 35 Report #: [id number] She reports her arterial Doppler of the legs was normal in [facility] physician group in July of 2016. It is also noted that frequently she does not take her diuretics because it is difficult for her to get to the bathroom. At times, if her leg is severely swollen and oozing, she will place it in a trash bag and use the trash bag to keep the fluid from dripping all over her floor. She has type 2 diabetes. She takes Premarin for hot flashes, prescribed by her compensator, Dr. Ethan Lewis of [facility]. She has a history of rheumatoid arthritis, controlled with Plaquenil. Hypertension, hyperlipidemia, GERD and chronic kidney disease stage 3 with an outpatient baseline creatinine of 1.1 to 1.3. Nonsteroidal anti-inflammatory medications have caused her creatinine and her potassium to go up in the past and as a result, she has been advised that she should not take them and has avoided NSAID medications. She has anemia of chronic disease, macrocytosis, history of severe malnutrition and morbid obesity with a BMI of 38, calculated by stated height of 5 feet 3 inches and a discharge weight last several months ago of 215 pounds. Dry eyes, glaucoma, severe end-stage osteoarthritis of both knees and she is not an operative candidate. Hyperlipidemia, chronic low back pain, history of chronic kidney disease that was stable at stage 4, chronically colonized leg ulcers with Enterococcus diphtheroids, Pseudomonas and MRSA at different times in the past. Intermittent intertriginous skin fold inflammation from her abdominal pannus; diabetic neuropathy, treated with gabapentin and/or Lyrica; asymptomatic bacteriuria; seborrheic keratosis of the face; macrocytosis without alcohol use without hypothyroidism and without B12 deficiency. Severe diffuse muscle atrophy and debility, osteoporosis and chronic low back pain. MEDICATIONS: List is in : Tramadol 50 mg 2-3 times daily, hydroxychloroquine 200 mg twice daily, lisinopril 40 mg twice daily, clonidine 0.5 mg at bedtime was recently discontinued by the patient, pioglitazone 15 mg one-half daily, atorvastatin 20 mg one-half tablets daily, 81 mg aspirin daily, furosemide 40 mg daily prescribed by Dr. Beckman, B12 at 1000 mcg daily, Biotin, fexofenadine, stool softener, vitamin D3 at 2000 units daily, zinc 50 mg daily, Tylenol 650 mg daily, vitamin C and vitamin E. Premarin. Latanoprost and Restasis. Lorazepam 0.5 mg 3 times daily as needed, Requip 0.5 mg once daily for restless legs. [address] [address] HISTORY AND PHYSICAL Name: CHERELLE GEORGE Room #: 433-I [facility].#: [id number] Admission: 12/12/16 Attend Phys: Robert Pacheco MD Discharge: 12/17/16 Date of : 35 Report #: [id number] ALLERGIES: SULFA. SOCIAL HISTORY: She does not drink or smoke. She lives in a home that has a very cluttered floor and it is difficult to get back and fourth to the bedroom and the restroom. REVIEW OF SYSTEMS: Negative, except for the HPI above. She does report that she has generalized discomfort because of the pain in her legs. PHYSICAL EXAMINATION: GENERAL: Shows an elderly female in her hospital bed. HEENT: Unremarkable. LUNGS: There is a soft grade 2 systolic ejection murmur and the lung lewis are clear. ABDOMEN: Soft, nontender, without significant rash. She is morbidly obese. EXTREMITIES: There is 3+ edema of both lower extremities. There is numbness in the feet. LABORATORY DATA: Her potassium is 5.8 and her BUN is 55, compared with the baseline of 30 and creatinine is 1.8, compared with the baseline of 1.1. Albumin is low at 2.4. NT-proBNP is mildly elevated at 545. WBCs are normal at 8.4 thousand; hemoglobin is 10.3, compared to a baseline of 9 and lymphocytes are low at 14%. MRSA nasal swab was negative. ASSESSMENT: 1. Acute cellulitis or extensive lower leg ulcers, the left leg much more so than the right. 2. Chronic edema of the lower extremities. 3. Type 2 diabetes, managed by diet and oral medication. 4. Controlled hypertension. 5. Venous insufficiency and lymphedema. 6. Morbid obesity. 7. Chronic kidney disease stage 3. 8. Acute renal failure with elevation of creatinine. 9. Acute hyperkalemia. 10. Dehydration. PLAN: She is admitted with intravenous fluids, intravenous saline. It is expected that her creatinine will improve and normalize and that the elevated potassium levels will do likewise as often in the past. She is started on vancomycin because of a distant history of MRSA leg infection. She has also started on ampicillin sulbactam IV. Her legs are to be elevated. She is [address] [address] HISTORY AND PHYSICAL Name: CHERELLE GEORGE Room #: 433-I [facility]#: [id number] Admission: 12/12/16 Attend Phys: Robert Pacheco MD Discharge: 12/17/16 Date of : 35 Report #: [id number] to be seen in wound consultation by Dr. Theo Becmkan. Gentle intravenous fluids will be given. Pulsetile lavage of the legs will be initiated. <ELECTRONICALLY SIGNED> By: Robert Pacheco MD 12/25/16 [id number] Robert Pacheco MD /nt
--- NOTE | ~2016-12-12 | H ---
[facility] [place] [address] HISTORY AND PHYSICAL Name: CHERELLE GEORGE Room #: 433-I ADM IN ..#: [id number] Admission: 12/12/16 Attend Phys: Robert Pacheco MD Discharge: Date of : 35 Report #: [id number] THIS REPORT FOR: //name// CC: Robert Pacheco DATE OF SERVICE: 12/13/2016 This is an established patient but new hospital visit. PERSONAL PHYSICIAN: Dr. Robert Pacheco. CHIEF COMPLAINT: Bilateral lower extremity cellulitis and open wounds. HISTORY OF PRESENT ILLNESS: This is an 81-year-old white female who has been a longstanding patient of mine for chronic lower extremity venous insufficiency and lymphedema, who has had multiple episodes of hospitalization for recurrent cellulitis and open ulcerations. I saw the patient approximately 2 weeks ago. The patient at that time had open ulcerations on the left greater than the right leg, but no signs of cellulitis. The patient states that over the past several days, she started having more swelling, increased redness and warmth. Her home health nurse felt that she need to be evaluated. The patient was sent to the Emergency Department and was admitted for cellulitis of the lower extremities. I have been asked to assist in the care of her wounds as well as her swelling. The patient states she does still have significant pain in both lower extremities, which is chronic for her. She describes it as a 10/10, worse with ambulation, better with elevation. PAST MEDICAL HISTORY: Significant for morbid obesity, chronic atrial fibrillation, diabetes mellitus, hypertension, venous insufficiency with chronic edema, lymphedema, anxiety and chronic kidney disease. CURRENT MEDICATIONS: Multiple, I reviewed the patient's medication list. DRUG ALLERGIES: NONSTEROIDAL INFLAMMATORIES and SULFA. FAMILY HISTORY: Not pertinent to current medical condition. REVIEW OF SYSTEMS: CONSTITUTIONAL: The patient denies fevers or chills. NEUROLOGIC: The patient complains of overall generalized weakness, but no associated isolated weakness in arms or legs. EYES: No complaints. ENT: No complaints. CARDIAC: The patient has chronic lower extremity edema, worse over the past several days. No chest pain or palpitation. RESPIRATORY: Denies shortness breath, cough or wheezes. [facility] [address] [place] [address] HISTORY AND PHYSICAL Name: CHERELLE GEORGE Room #: 433-I [facility] IN [facility]#: [id number] Admission: 12/12/16 Attend Phys: Robert Pacheco MD Discharge: Date of : 35 Report #: [id number] GASTROINTESTINAL: The patient denies nausea, vomiting or abdominal pain. GENITOURINARY: The patient denies urgency or frequency. MUSCULOSKELETAL: No complaints. SKIN: There are multiple superficial ulcerations on bilateral lower extremities, left much greater than right. PHYSICAL EXAMINATION: VITAL SIGNS: Stable. The patient is afebrile, T-max is 36.6. GENERAL: This is an alert and oriented x 3, morbidly obese white female who is in no acute distress. HEENT: Normocephalic, atraumatic. Mucous membranes are somewhat dry. Pupils are round. Sclerae are white. NECK: Without JVD or masses. LUNGS: Clear. HEART: Irregularly irregular with 2/6 systolic ejection murmur. ABDOMEN: Obese, soft, nontender. EXTREMITIES: The patient has 4+ edema in the bilateral lower extremities which is pitting. There is weeping noted from both lower extremities and on the left lower extremity there is a large full thickness ulceration which would be a mix of granulation tissue and yellow/green slough. There is no actual necrotic tissue; odor, there is a pseudopurulent drainage which is foul smelling. Multiple other superficial ulcerations are noted in the left lower extremity with areas of superficial bolus blisters. Distal neurovascular is otherwise intact. Bilateral heels are intact. Evaluation of right lower extremity revealed multiple superficial partial thickness ulcerations which are fairly clean and granulating. They have serosanguineous drainage without significant odor. NEUROLOGIC: Cranial nerves 2-12 are grossly intact. Motor and sensory grossly intact. LABORATORY VALUES: White count is 8.6, hemoglobin 9.5, potassium is elevated at 5.8. IMPRESSION: 1. Chronic ulcerations, bilateral lower extremities, left greater than right with involvement of fat layer on the left lower extremity and limited to skin on the right lower extremity. 2. Chronic venous insufficiency with edema. 3. Chronic lymphedema. 4. Diabetes mellitus type 2. 5. Cellulitis, bilateral lower extremities, left greater than right. 6. History of protein-calorie malnutrition. 7. Morbid obesity. 8. Generalized debility. PLAN: At this time, Dr. Pacheco initially had ordered pulse lavage on the patient [address] [address] HISTORY AND PHYSICAL Name: CHERELLE GEORGE Room #: 433-I ADM IN ..#: [id number] Admission: 12/12/16 Attend Phys: Robert Pacheco MD Discharge: Date of : 35 Report #: [id number] to help with the debridement of these ulcerations; however, the patient told me that she does not think she can tolerate pulse lavage at this time. We will start her on morphine, Silvadene cream to both lower extremities, cover this with Xeroform gauze, ABD, Kerlix and Marcos from toes to knee for control of edema as well as morphine, Silvadene for healing and pain control. Continue with IV antibiotics under the care of Dr. Pacheco as well as we will plan on the next couple of days doing pulse lavage once the initial discomfort has resolved. We will make sure that we maximize the patient's oral supplementation of protein for healing and pain. We will also make sure we will attempt to maximize the patient's physical and occupational therapy for her overall generalized debility. , I appreciate the ability to consult on this patient. We will continue to follow her. By: [id number] [id number] Theo Beckman MD /nt
--- NOTE | ~2016-12-12 | EKG ---
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
[2016-12-12 18:04] VITALS: BP 140/78
[2016-12-12 20:59] LABS: HEMATOCRIT 31.1 % (37.0-47.0); HEMOGLOBIN 10.3 gm/dL (12.0-15.0); MCH 31.9 pg (26.0-34.0); MCHC 33.2 g/dL (28.0-37.0); MCV 95.9 fL (80.0-100.0); PLATELET COUNT 174 thou/uL (150-400); RBC 3.24 mil/uL (4.20-5.00); RDW 13.2 % (10.5-14.5); WBC 8.4 thou/uL (4.0-11.0)
[2016-12-12 21:02] LABS: MANUAL DIFF YES
[2016-12-12 21:14] LABS: CALCIUM 8.7 mg/dL (8.5-10.1); CREATININE 1.8 mg/dL (0.6-1.0); POTASSIUM 5.8 mmol/L (3.5-5.1)
[2016-12-12 21:21] LABS: ABSOLUTE NEUTROPHILS 5.5 thou/uL (1.4-8.2); TOTAL CELL COUNT 100
[2016-12-12 21:23] LABS: ANISOCYTOSIS 1+
[2016-12-12 23:55] VITALS: BP 120/59
[2016-12-13 00:10] VITALS: BP 96/40
[2016-12-13 03:50] VITALS: BP 110/59
[2016-12-13 04:59] LABS: HEMATOCRIT 28.4 % (37.0-47.0); HEMOGLOBIN 9.5 gm/dL (12.0-15.0); MCH 32.1 pg (26.0-34.0); MCHC 33.3 g/dL (28.0-37.0); MCV 96.6 fL (80.0-100.0); RBC 2.94 mil/uL (4.20-5.00); RDW 13.2 % (10.5-14.5); WBC 8.6 thou/uL (4.0-11.0)
[2016-12-13 05:14] LABS: CALCIUM 8.5 mg/dL (8.5-10.1); CREATININE 1.5 mg/dL (0.6-1.0); POTASSIUM 5.2 mmol/L (3.5-5.1)
[2016-12-13 07:23] VITALS: BP 114/55
[2016-12-13 18:00] VITALS: BP 117/60
[2016-12-13 19:09] VITALS: BP 141/46
[2016-12-14 05:33] LABS: HEMATOCRIT 29.5 % (37.0-47.0); HEMOGLOBIN 9.8 gm/dL (12.0-15.0); MCH 31.8 pg (26.0-34.0); MCHC 33.2 g/dL (28.0-37.0); MCV 95.7 fL (80.0-100.0); RBC 3.08 mil/uL (4.20-5.00); RDW 13.2 % (10.5-14.5)
[2016-12-14 06:01] VITALS: BP 129/59
[2016-12-14 07:10] LABS: ALBUMIN 2.4 g/dL (3.4-5.0); CALCIUM 8.6 mg/dL (8.5-10.1); CREATININE 1.1 mg/dL (0.6-1.0); POTASSIUM 5.3 mmol/L (3.5-5.1); TOTAL BILIRUBIN 0.2 mg/dL (<0.1-1.0); TOTAL PROTEIN 6.2 g/dL (6.4-8.2)
[2016-12-14 08:00] VITALS: BP 142/76
[2016-12-14 16:00] VITALS: BP 134/71
[2016-12-14 19:39] VITALS: BP 123/70
[2016-12-15 03:39] VITALS: BP 129/57
[2016-12-15 08:00] VITALS: BP 126/61
[2016-12-15 12:00] VITALS: BP 111/57
[2016-12-15 15:59] VITALS: BP 136/75
[2016-12-15 19:45] VITALS: BP 148/70
[2016-12-16 04:02] VITALS: BP 124/78
[2016-12-16 08:00] VITALS: BP 142/89
[2016-12-16 12:00] VITALS: BP 143/55
[2016-12-16 21:00] VITALS: BP 146/76
[2016-12-17 04:15] VITALS: BP 130/51
[2016-12-17 05:44] LABS: HEMATOCRIT 31.4 % (37.0-47.0); HEMOGLOBIN 10.4 gm/dL (12.0-15.0); MCH 31.8 pg (26.0-34.0); MCHC 33.1 g/dL (28.0-37.0); MCV 96.2 fL (80.0-100.0); RBC 3.27 mil/uL (4.20-5.00); RDW 13.4 % (10.5-14.5); WBC 5.1 thou/uL (4.0-11.0)
[2016-12-17 06:03] LABS: CALCIUM 9.5 mg/dL (8.5-10.1); CREATININE 1.1 mg/dL (0.6-1.0); POTASSIUM 5.1 mmol/L (3.5-5.1)
[2016-12-17 08:00] VITALS: BP 147/102; BP 168/94
[2016-12-17] MEDS ORDERED: MORPHINE 44 MG/1 ML IV PUSH (08:52)
[2016-12-17] MEDS ORDERED: VITAMINC500 PO (08:52)
[2016-12-17] MEDS ORDERED: TRAMADOL 50 MG50 MG PO (08:52)
[2016-12-17 09:30] VITALS: BP 140/88
== END 2016-12-17 16:10 | DRG 602 ==
LOC: ER 18:00 → EROBS 22:01 → 4S 22:01
PROVIDERS: Emergency Medicine; Internal Medicine
PROC: 02HV33Z Insertion of Infusion Device into Superior Vena Cava, Percutaneous Approach (ICD-10-PCS; principal; 2016-12-14)
DX: L03.116 Cellulitis of left lower limb (principal); E43 Unspecified severe protein-calorie malnutrition; L97.822 Non-pressure chronic ulcer of other part of left lower leg with fat layer exposed; L97.811 Non-pressure chronic ulcer of other part of right lower leg limited to breakdown of skin; N17.9 Acute kidney failure, unspecified; N18.4 Chronic kidney disease, stage 4 (severe); E11.622 Type 2 diabetes mellitus with other skin ulcer; L03.115 Cellulitis of right lower limb; I12.9 Hypertensive chronic kidney disease with stage 1 through stage 4 chronic kidney disease, or unspecified chronic kidney disease; E78.5 Hyperlipidemia, unspecified; H40.9 Unspecified glaucoma; M81.0 Age-related osteoporosis without current pathological fracture; E11.40 Type 2 diabetes mellitus with diabetic neuropathy, unspecified; E11.22 Type 2 diabetes mellitus with diabetic chronic kidney disease; M06.9 Rheumatoid arthritis, unspecified; F41.9 Anxiety disorder, unspecified; E87.5 Hyperkalemia; I48.2 Chronic atrial fibrillation; I87.2 Venous insufficiency (chronic) (peripheral); R53.81 Other malaise; E86.0 Dehydration; E66.01 Morbid (severe) obesity due to excess calories; Z68.38 Body mass index [BMI] 38.0-38.9, adult; Z79.4 Long term (current) use of insulin; Z79.899 Other long term (current) drug therapy; Z86.14 Personal history of Methicillin resistant Staphylococcus aureus infection; Z88.2 Allergy status to sulfonamides; Z88.8 Allergy status to other drugs, medicaments and biological substances
CPT/HCPCS: 10100; 27000

== ENCOUNTER → 2017-02-06 | Outpatient (CLI) | payer OTHER ==
[~2017-02-06] MED LIST changes: +MORPHINE 44 MG/1 ML IV PUSH; +VITAMINC500 PO
== END ==
LOC: HYPER 12-10 07:04
DX: E11.622 Type 2 diabetes mellitus with other skin ulcer (principal); L97.812 Non-pressure chronic ulcer of other part of right lower leg with fat layer exposed; L97.822 Non-pressure chronic ulcer of other part of left lower leg with fat layer exposed; I87.322 Chronic venous hypertension (idiopathic) with inflammation of left lower extremity; I87.331 Chronic venous hypertension (idiopathic) with ulcer and inflammation of right lower extremity; I89.0 Lymphedema, not elsewhere classified; M19.90 Unspecified osteoarthritis, unspecified site; E11.42 Type 2 diabetes mellitus with diabetic polyneuropathy; M06.9 Rheumatoid arthritis, unspecified; I48.91 Unspecified atrial fibrillation; E11.36 Type 2 diabetes mellitus with diabetic cataract; E11.22 Type 2 diabetes mellitus with diabetic chronic kidney disease; I12.9 Hypertensive chronic kidney disease with stage 1 through stage 4 chronic kidney disease, or unspecified chronic kidney disease; N18.9 Chronic kidney disease, unspecified; E78.5 Hyperlipidemia, unspecified; E66.01 Morbid (severe) obesity due to excess calories; M81.0 Age-related osteoporosis without current pathological fracture; Z68.41 Body mass index [BMI] 40.0-44.9, adult

== ENCOUNTER 2017-02-14 13:16 | Inpatient (IN) | payer OTHER ==
[~2017-02-14] VITALS: Ht 160 cm; Wt 99.3 kg
--- NOTE | ~2017-02-14 | H ---
[facility] [place] [address] HISTORY AND PHYSICAL Name: CHERELLE GEORGE Room #: 423-1 ADM IN M.R.#: [id number] Admission: 02/14/17 Attend Phys: Robert Pacheco MD Discharge: Date of : 35 Report #: [id number] THIS REPORT FOR: //name// CC: Robert Pacheco DATE OF SERVICE: 02/14/2017 CHIEF COMPLAINT: Intractable pain from worsening of chronic bilateral leg ulcers. HISTORY OF PRESENT ILLNESS: The patient has a long history of chronic venous stasis and lymphedema stasis leg ulcers with multiple hospitalizations, multiple episodes of cellulitis and infection. There was an "event" this morning with her home health care nursing personnel/agency where upon they discontinued their services because of noncompliance. Because her wounds needed the dressing change, she presented to the emergency room for the dressing change. When the wounds were examined in the emergency room, it was readily apparent that she had active cellulitis as well as severe pain from her wounds. She required hospitalization for intravenous antibiotics for the acute cellulitis of her leg wounds, she required hospitalization for debridement and wound care for her wounds, and she was also found to have satisfied the elevation of serum creatinine criteria for acute renal failure and also had criteria for an elevated serum potassium requiring hospitalization for intravenous fluids and close management of her electrolytes. PAST MEDICAL HISTORY: Well detailed in multiple previous hospital stays, most recently 12/12/2016, 08/28/2016, 05/14/2016, and 05/27/2015. She has chronic kidney disease stage 3. She is sensitive to NSAID medications that reduce her renal function as well as increase her potassium, so she is unable to take these medications help reduce her leg pain. She has chronic severe malnutrition. She has documented noncompliance. She has type 2 diabetes, is actually well controlled; chronic morbid obesity, chronic lymphedema of both lower legs, MRSA has been cultured from her leg wounds in the past, and Enterococcus faecalis (sensitive to ampicillin and vancomycin) were cultured on 01/24/2014. She has glaucoma, she is on hormone replacement therapy from her pearl technician, she had bright red blood in her stool 08/28/2016 and has as of yet not been able to have a colonoscopy, although she has been given the contact numbers and the importance for this procedure has been discussed with her multiple times since that admission. Rectal examination on that hospital stay was negative except for a few hemorrhoidal tags, and bright red blood in her stool lasted for only 2 or 3 days at that hospital stay and has not recurred. 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 She often does not take her diuretics because of how difficult this for her to get to the commode or her bathroom. She has chronic noncompliance and has been discharged from multiple home health services here in the [place] area. In addition to chronic noncompliance, she has had difficult behavior for some of the home health service staff to deal with. She has been known to put her legs in trash bags to help prevent the oozing and fluid from dripping over the floor in her home, and has been known not to take her diuretics at times because of the difficulty she has in getting to the bathroom. She has hypertension, hyperlipidemia, GERD, anemia of chronic disease, macrocytosis, and a distant history of rheumatoid arthritis that she insists is made better by taking Plaquenil. In August, her BMI was 38, calculated by the information on that hospital stay. Dry eyes, glaucoma, chronic low back pain, chronic intertriginous skin fold inflammation from her abdominal pannus; diabetic neuropathy, treated with gabapentin and/or Lyrica; asymptomatic bacteriuria, seborrheic keratosis of the face, macrocytosis has been in the absence of alcohol use, absence of hypothyroidism, and absence of B12 deficiency. Severe disuse muscle atrophy and ability, osteoporosis, symptomatic restless legs syndrome, grade 2 systolic ejection murmur has been stable. CURRENT MEDICATIONS: List is provided as consisting of acetaminophen combined with tramadol every 4-6 hours as needed for pain, vitamin C 500 mg daily for nutrition, 81 mg of aspirin daily, vitamin D, cyclosporine eyedrops twice daily in both eyes for dry eyes, diltiazem 120 mg twice daily for blood pressure and heart rhythm, Colace, Prempro 0.3/1.5 mg daily, Xalatan eyedrops in both eyes at bedtime, Nystatin powder to the affected areas and zinc gluconate 50 mg daily for nutrition. ALLERGIES: SULFA and NSAID MEDICATIONS, SOME LUI WRAPS AND COBAN WRAPS cause a local dermatitis. REVIEW OF SYSTEMS: Positive for her requesting Benadryl because of itching caused by one of her medications. She admits that today is the first time she has ever reported to me that she has itching, and that it is caused by one of her medications. Also positive for enlargement and discomfort in her umbilical hernia for last several weeks or months. The pain in her legs is severe. [facility] [place] [address] HISTORY AND PHYSICAL Name: CHERELLE GEORGE Room #: 423-1 ADM IN M.R.#: [id number] Admission: 02/14/17 Attend Phys: Robert Pacheco MD Discharge: Date of : 35 Report #: [id number] PHYSICAL EXAMINATION: GENERAL: Shows an 81-year-old female in her hospital bed, shaking with emotion and tremoring with pain. Her son and grandsons are present. HEENT: Unremarkable. LUNGS: Clear. HEART: Tones are normal and the rhythm is regular. Significant murmur is not appreciated at this time. ABDOMEN: Soft and nontender and obese, with the exception of a 10 cm umbilical hernia that is not reducible and is tender. She denies other abdominal pain. Denies decrease in her appetite. Denies vomiting while eating, and reports her bowel movements are normal: All these features indicating she is not obstructed at the hernia. EXTREMITIES: Her legs are obese. Below the knee, there is almost circumferential redness, erythema, tenderness, ulceration, oozing of secretions, and scattered large areas of eschar. The skin distal to the ankles is for the most part intact. Blanching of the skin is mildly delayed. Sensation in the feet and toes is hypersensitive, tickling her triggers painful withdrawal of her leg. LABORATORY DATA: Her creatinine is elevated at 1.7 compared to baseline of 1.1, satisfying criteria for acute renal failure. BUN is elevated at 57 compared with the baseline of 30. Her potassium is elevated at 5.6 compared to a baseline of 5.1. Her albumin is low at 2.6 despite her volume depleted condition. WBCs are 7.6 thousand, her hemoglobin is 10.9. There is a mild left shift with 80% segmented neutrophils. ASSESSMENT: 1. Recurrent persistent venous insufficiency and lymphedema leg ulcers. 2. Active cellulitis with surrounding erythema and exudate and exudative secretions from her wounds. 3. Severe pain in her legs, this is somewhat new for her. 4. Acute renal failure by creatinine and BUN elevation criteria. 5. Severe malnutrition. 6. Hyperkalemia. 7. In the last month, there has been an enlargement of her known umbilical hernia and now it is uncomfortable -- it is incarcerated, but is not obstructed. 8. Other multiple medical problems as mentioned in the history and physical. PLAN: Her levels of pain will be addressed with topical morphine treatment to her legs as well as oral and intravenous analgesics. Wound treatment is already in place with the wound care service having been consulted and having evaluated her; Dr. Basil Quan saw her this morning in consultation and pulsatile lavage has been put in place. Intravenous antibiotics are [place] [address] HISTORY AND PHYSICAL Name: CHERELLE GEORGE Room #: 423-1 ADM IN M.R.#: [id number] Admission: 02/14/17 Attend Phys: Robert Pacheco MD Discharge: Date of : 35 Report #: [id number] pending. Intravenous fluids are being given. Surgical consultation will be obtained for her minimally symptomatic incarcerated umbilical hernia. When asked about code status, she indicated that for her witnessed arrest, she wishes a full code blue. By: [id number] Robert Pacheco MD /nt
--- NOTE | ~2017-02-14 | HC ---
[facility] [place] [address] CONSULTATION Name: CHERELLE GEORGE Room #: 423-1 ADM IN M.R.#: [id number] Admission: 02/14/17 Attend Phys: Robert Pacheco MD Discharge: Date of : 35 Report #: [id number] THIS REPORT FOR: //name// CC: Robert Pacheco DATE OF SERVICE: 02/15/2017 WOUND CARE CONSULTATION NOTE REASON FOR CONSULTATION: Venous stasis ulcers of bilateral lower extremities with infection and cellulitis. HISTORY OF PRESENT ILLNESS: The patient is an 81-year-old woman, previously well known to Dr. Theo Beckman at the wound care service for care of venous stasis ulcerations of bilateral lower extremities, which have been very painful with a tendency toward cellulitis requiring previous hospitalizations. The patient was admitted to the emergency room by Dr. Quintana. The patient is under the primary care of Dr. Robert Pacheco. The patient has had these leg ulcers chronically for a long time, but these now were more painful and tender with increased drainage and the patient has fear that they are infected. PAST MEDICAL HISTORY: Obesity. The patient is non-diabetic. MEDICATIONS: See chart. PHYSICAL EXAMINATION: GENERAL: Elderly woman, some discomfort, very alert, articulate and conversant. VITAL SIGNS: Temperature 36.7, pulse 82, respirations 18, blood pressure 103/77. HEENT: Mucous membranes are moist. NECK: Supple. LUNGS: Respirations are unlabored. ABDOMEN: Obese. EXTREMITIES: Examination of the lower extremities with dressings removed shows large areas of venous stasis ulceration of the right and left leg. Left leg is clinically worse than the right. Right leg has near circumferential areas of open venous stasis ulceration with ulceration of the skin with some exposed subcutaneous tissue. There is mild cellulitis present. Examination of the left leg shows near circumferential venous stasis ulceration of the left leg and in the anterior pretibial area, there are areas of superficial necrosis with grayish cortes tissue. There is a heavy yellow-garcia exudate anteriorly. Wounds are all quite tender with some redness and cellulitis, particularly of the left leg. LABORATORY DATA: On February 14, white blood count 7.6, hemoglobin 10.9, hematocrit 32, creatinine 1.7, potassium 5.6, albumin 2.6. [address] [address] CONSULTATION Name: CHERELLE GEORGE Room #: 423-1 ADM IN M.R.#: [id number] Admission: 02/14/17 Attend Phys: Robert Pacheco MD Discharge: Date of : 35 Report #: [id number] IMPRESSION: 1. Obesity. 2. Acute renal insufficiency with potassium of 5.6, creatinine 1.7. 3. Severe protein-calorie malnutrition, albumin 2.6. 4. Chronic bilateral venous stasis ulcerations of right and left lower extremity with ulceration and inflammation. 5. Cellulitis of both lower extremities associated with venous stasis ulcerations. PLAN: 1. Order morphine, Silvadene cream to the open areas of both lower legs to be applied twice daily, covered with Xeroform absorbent abdominal wound dressing pads and a light Marcos wrap. 2. Wound cultures are in progress. 3. Intravenous antibiotics, vancomycin. Wound care team . Dr. Beckman will follow during hospitalization as the patient's cellulitis is treated and wounds . <ELECTRONICALLY SIGNED> By: Basil Quan MD 02/18/17 1301 [id number] [id number] Basil Quan MD /nt
[2017-02-14 13:18] VITALS: BP 142/70
[2017-02-14] MEDS ORDERED: VITAMIN D1000 UNI1 (14:04)
[2017-02-14 16:25] LABS: HEMOGLOBIN 10.9 gm/dL (12.0-15.0); MCH 32.6 pg (26.0-34.0); MCHC 34.1 g/dL (28.0-37.0); MCV 95.4 fL (80.0-100.0); PLATELET COUNT 236 thou/uL (150-400); RBC 3.36 mil/uL (4.20-5.00); RDW 14.4 % (10.5-14.5); WBC 7.6 thou/uL (4.0-11.0)
[2017-02-14 16:28] LABS: MANUAL DIFF YES
[2017-02-14 16:43] LABS: CALCIUM 9.1 mg/dL (8.5-10.1); CREATININE 1.7 mg/dL (0.6-1.0); POTASSIUM 5.6 mmol/L (3.5-5.1)
[2017-02-14 16:46] LABS: ABSOLUTE NEUTROPHILS 6.1 thou/uL (1.4-8.2); TOTAL CELL COUNT 100
[2017-02-14 16:47] LABS: ALBUMIN 2.6 g/dL (3.4-5.0); TOTAL BILIRUBIN 0.3 mg/dL (<0.1-1.0); TOTAL PROTEIN 7.1 g/dL (6.4-8.2)
[2017-02-14 21:17] VITALS: BP 149/69
[2017-02-15 05:00] VITALS: BP 125/58
[2017-02-15 08:00] VITALS: BP 103/77
[2017-02-15 17:00] LABS: CALCIUM 8.7 mg/dL (8.5-10.1); CREATININE 1.4 mg/dL (0.6-1.0); POTASSIUM 4.9 mmol/L (3.5-5.1)
[2017-02-15 20:00] VITALS: BP 109/63
[2017-02-16 04:00] VITALS: BP 129/43
[2017-02-16 06:45] LABS: CALCIUM 8.5 mg/dL (8.5-10.1); CREATININE 0.9 mg/dL (0.6-1.0); POTASSIUM 5.5 mmol/L (3.5-5.1)
[2017-02-16 08:33] VITALS: BP 131/75
[2017-02-16 16:50] VITALS: BP 151/89
[2017-02-17 04:30] VITALS: BP 131/67
[2017-02-17 07:51] VITALS: BP 111/51
[2017-02-17 09:30] LABS: CALCIUM 9.4 mg/dL (8.5-10.1); CREATININE 1.2 mg/dL (0.6-1.0)
[2017-02-17 22:01] VITALS: BP 125/59
[2017-02-18 05:14] VITALS: BP 137/56
[2017-02-18 16:02] VITALS: BP 152/91
[2017-02-18 23:05] VITALS: BP 161/95
[2017-02-19 04:00] VITALS: BP 138/71
[2017-02-19 06:19] LABS: CALCIUM 8.7 mg/dL (8.5-10.1); CREATININE 1.3 mg/dL (0.6-1.0); POTASSIUM 5.2 mmol/L (3.5-5.1)
[2017-02-19 10:28] VITALS: BP 133/64
[2017-02-19 16:26] VITALS: BP 128/63
[2017-02-19] MEDS ORDERED: ZOSYN 3.373.375 GM/1 IV (17:00)
[2017-02-19] MEDS ORDERED: SILVADENE20 GM TOP (17:00)
[2017-02-19] MEDS ORDERED: ENOXAPARIN30 MG/0.1 SUBQ (17:00)
[2017-02-19] MEDS ORDERED: DILAUDID 2 MG TA2 MG PO (17:00)
[2017-02-19] MEDS ORDERED: HYDROCODONE-AP1 EAC6 PO (17:00)
[2017-02-19] MEDS ORDERED: LOW DOSE ASPIRI81 M1 PO (17:00)
[2017-02-19] MEDS ORDERED: DIPHENHIST25 M1 PO (17:00)
[2017-02-19] MEDS ORDERED: ASPIR 8181 MG PO (17:04)
[2017-02-19] MEDS ORDERED: DILTIAZEM ER120 M1 PO (17:04)
== END 2017-02-19 18:30 | disposition short-term general hospital (02) | DRG 602 ==
LOC: ER 13:16 → EROBS 15:21 → 4E 15:21
PROVIDERS: Emergency Medicine; Internal Medicine
DX: L03.116 Cellulitis of left lower limb (principal); E43 Unspecified severe protein-calorie malnutrition; N17.9 Acute kidney failure, unspecified; L97.829 Non-pressure chronic ulcer of other part of left lower leg with unspecified severity; L97.819 Non-pressure chronic ulcer of other part of right lower leg with unspecified severity; K42.0 Umbilical hernia with obstruction, without gangrene; L03.115 Cellulitis of right lower limb; E78.5 Hyperlipidemia, unspecified; H40.9 Unspecified glaucoma; I48.91 Unspecified atrial fibrillation; G89.29 Other chronic pain; M54.9 Dorsalgia, unspecified; E66.9 Obesity, unspecified; I87.8 Other specified disorders of veins; I86.8 Varicose veins of other specified sites; N18.3 Chronic kidney disease, stage 3 (moderate); E66.01 Morbid (severe) obesity due to excess calories; I12.9 Hypertensive chronic kidney disease with stage 1 through stage 4 chronic kidney disease, or unspecified chronic kidney disease; K21.9 Gastro-esophageal reflux disease without esophagitis; D63.8 Anemia in other chronic diseases classified elsewhere; M06.9 Rheumatoid arthritis, unspecified; E11.22 Type 2 diabetes mellitus with diabetic chronic kidney disease; E11.40 Type 2 diabetes mellitus with diabetic neuropathy, unspecified; E87.5 Hyperkalemia; B96.5 Pseudomonas (aeruginosa) (mallei) (pseudomallei) as the cause of diseases classified elsewhere; B95.61 Methicillin susceptible Staphylococcus aureus infection as the cause of diseases classified elsewhere; B96.1 Klebsiella pneumoniae [K. pneumoniae] as the cause of diseases classified elsewhere; E11.622 Type 2 diabetes mellitus with other skin ulcer; Z79.899 Other long term (current) drug therapy; Z79.82 Long term (current) use of aspirin; Z88.8 Allergy status to other drugs, medicaments and biological substances; Z88.2 Allergy status to sulfonamides; Z91.14 Patient's other noncompliance with medication regimen; Z68.38 Body mass index [BMI] 38.0-38.9, adult
CPT/HCPCS: 10084

== ENCOUNTER 2017-02-20 13:32 | Inpatient (IN) | payer OTHER ==
[~2017-02-20] VITALS: Ht 160 cm; Wt 99.8 kg
--- NOTE | ~2017-02-20 | HC ---
[facility] [place] [address] CONSULTATION Name: CHERELLE GEORGE Zaheer Room #: 403-P [facility] IN ..#: [id number] Admission: 04/08/17 Attend Phys: Robert Pacheco MD Discharge: Date of : 35 Report #: [id number] THIS REPORT FOR: //name// CC: Robert Lopezhens DATE OF SERVICE: 04/09/2017 CHIEF COMPLAINT: Lower extremity cellulitis and ulceration. HISTORY OF PRESENT ILLNESS: This is an 82-year-old female patient admitted to wound care clinic yesterday. She has longstanding history of ulcerations and cellulitis to both lower extremities. She is fairly noncompliant at home, but does follow up in the wound clinic on an intermittent basis. She was admitted for intravenous antibiotic therapy. She does complain of significant pain to both legs, but she is willing to allow us to change her dressings. She has had increased drainage, redness and pain both lower extremities. PAST MEDICAL HISTORY: Positive for multiple hospitalizations for cellulitis and ulcerations due to venous insufficiency and lymphedema. She has a history of malnutrition, type 2 diabetes and chronic noncompliance. ALLERGIES: NONSTEROIDAL ANTI-INFLAMMATORIES AND SULFA. SOCIAL HISTORY: The patient lives at home. No history of alcohol or tobacco use. FAMILY HISTORY: Noncontributory. MEDICATIONS: Include vancomycin, Zosyn, Lasix, Silvadene with morphine, cholecalciferol, ascorbic acid, docusate sodium, zinc gluconate, aspirin enteric coated, tramadol, cyclosporine. REVIEW OF SYSTEMS: CONSTITUTIONAL: The patient denies fever, chills or weight loss. NEUROLOGICAL: The patient denies focal weakness, numbness or tingling. EYES: The patient denies visual changes, redness or drainage. ENT: The patient denies earache, nasal drainage, sore throat. CARDIOVASCULAR: The patient denies chest pain, palpitations, diaphoresis. PULMONARY: The patient denies cough, shortness of breath. GASTROINTESTINAL: The patient denies nausea or abdominal pain. ORTHOPEDIC: The patient does complain of pain, swelling and ulceration, bilateral lower extremities. Other systems in a 14-point review of systems are negative. PHYSICAL EXAMINATION: [facility] [address] [place] [address] CONSULTATION Name: CHERELLE GEORGE Room #: 403-P [facility] IN [facility]#: [id number] Admission: 04/08/17 Attend Phys: Robert Pacheco MD Discharge: Date of : 35 Report #: [id number] VITAL SIGNS: At this time include temperature is 97.7, pulse 73, respiratory rate of 16, blood pressure 112/43. GENERAL: This is a chronically ill-appearing female patient who appears to be in moderate discomfort. HEENT: Head normocephalic. Nose and throat clear. NECK: Supple. LUNGS: Clear. HEART: ____. ABDOMEN: ____ obese, nontender. EXTREMITIES: Examination of lower extremities demonstrate significant ulceration, erythema and drainage bilateral lower extremities, left greater than right. She has palpable distal pulses. NEUROLOGIC: The patient alert and oriented, moving all 4 extremities spontaneously. CLINICAL IMPRESSION: 1. Cellulitis to both lower extremities. 2. Longstanding lymphedema and/or venous insufficiency. 3. Ulceration to bilateral lower extremities. 4. Diabetes mellitus. 5. Medical noncompliance. RECOMMENDATIONS: At this point in time, the patient is admitted for intravenous antibiotic therapy. We will start care with topical Silvadene and morphine compound and Xeroform gauze with secondary Kerlix and then an Marcos wrap for compression. Recommend elevation of legs when possible. The patient is agreeable to current plan. <ELECTRONICALLY SIGNED> By: Kevin Veliz MD 04/10/17 0911 [id number] Kevin Veliz MD /nt
--- NOTE | ~2017-02-20 | H ---
[facility] [place] [address] HISTORY AND PHYSICAL Name: CHERELLE GEORGE Room #: 403-P ADM IN .R.#: [id number] Admission: 04/08/17 Attend Phys: Robert Pacheco MD Discharge: Date of : 35 Report #: [id number] THIS REPORT FOR: //name// CC: Robert Beckman DATE OF SERVICE: 04/08/2017 DATE OF SERVICE: 04/08/2017. PERSONAL PHYSICIAN: Dr. Robert Pacheco. CHIEF COMPLAINT: Bilateral lower extremity ulcerations and cellulitis. HISTORY OF PRESENT ILLNESS: This is an elderly white female who we have been following for several years for chronic ulcerations on bilateral lower extremities with associated recurrent cellulitis. The patient has had Pseudomonas in the wounds in the past. The patient called our office today, stated that she had significant amount of greenish drainage coming from both legs with increased swelling, but did not have actual fevers or chills. The patient actually then showed up in our office with legs weeping, and without an appointment at that time, I contacted Dr. Robert Pacheco. We decided to make the patient a direct admission to his service and I would participate in the wound care. The patient states that the legs had gotten progressively more swollen in the past several days. Home health nurses had been called and they are stating that the patient was being noncompliant with her diet and that they felt the patient needed to be admitted last week; however, the patient refused to come in at that time. The patient denies any other associated wounds except for the ones on her legs. PAST MEDICAL HISTORY: Significant for multiple hospitalizations for cellulitis, bilateral lower extremities secondary to venous insufficiency and lymphedema. The patient has morbid obesity, chronic kidney disease, malnutrition, type 2 diabetes and chronic noncompliance. CURRENT MEDICATIONS: Multiple. I reviewed the patient's medication list. DRUG ALLERGIES: NONSTEROID ANTI-INFLAMMATORIES, SULFA. SOCIAL HISTORY: The patient lives at home and does not smoke or drink alcohol. FAMILY HISTORY: Not pertinent to current medical condition. REVIEW OF SYSTEMS: CONSTITUTIONAL: The patient denies fevers or chills at home. NEUROLOGIC: The patient has overall generalized weakness, but no isolated [address] [address] HISTORY AND PHYSICAL Name: CHERELLE GEORGE Room #: 403-P [facility] IN [facility]#: [id number] Admission: 04/08/17 Attend Phys: Robert Pacheco MD Discharge: Date of : 35 Report #: [id number] weakness in arms or legs. EYES: No complaints. ENT: No complaints. CARDIAC: The patient has chronic lower extremity edema, worse in the past several days, but no associated chest pain or palpitations. RESPIRATORY: The patient denies shortness of breath, cough, wheezes. GASTROINTESTINAL: The patient denies nausea, vomiting, abdominal pain, but does have decreased appetite. GENITOURINARY: The patient denies urgency or frequency. MUSCULOSKELETAL: The patient has chronic pain in her back and knees. SKIN: There are multiple ulcerations on bilateral lower extremities, which are weeping. PHYSICAL EXAMINATION: VITAL SIGNS: Temperature 36.5, pulse 77, respirations 16, and BP 121/51. GENERAL: This is an alert and oriented x 3, morbidly obese white female who is in her usual state of mentation and complained of the pain in her legs, but does not appear to be in any obvious significant distress. HEENT: Normocephalic, atraumatic. Mucous membranes are dry. Pupils are round. Sclerae white. NECK: Without JVD or masses. LUNGS: Clear. HEART: Regular. ABDOMEN: Obese, soft, nontender. EXTREMITIES: The patient has 4+ edema in the bilateral lower extremities with significant amount of greenish drainage noted on the bandages, which is soaked entirely through 3 layers of bandages. There are multiple superficial and full-thickness ulcerations on both lower extremities, which are essentially circumferential. There was increased erythema, warmth associated with bilateral lower extremities. Distal pulses are intact. Bilateral heels are intact. NEUROLOGIC: Cranial nerves 2-12 are grossly intact. Motor and sensory grossly intact. LABORATORY DATA: CBC, CMP, and wound cultures are pending. WOUND CARE COURSE: At this time, I have ordered morphine, Silvadene compound replaced with bilateral lower extremities which is covered with Xeroform and ABD, Kerlix and Marcos wrap for control of edema twice daily. In the past, we were able to do pulse lavage after a couple of days of treatment to allow once the patient's pain was better controlled, which actually did markedly help her ulcerations in their appearance. We will attempt to try to pulse lavage at this time. I have spoken with Dr. Robert Pacheco once again, who admitted the patient as a direct admission. I will let him make further guidance on IV antibiotics; however, Dr. Checo Rodrigues has been involved in this patient's care multiple times in the past. The patient in the past has not had any recent MRSA, and it has been mainly Pseudomonas treated with Zosyn. However, , [facility] [address] [place] [address] HISTORY AND PHYSICAL Name: CHERELLE GEORGE Room #: 403-P [facility] IN [place]#: [id number] Admission: 04/08/17 Attend Phys: Robert Pacheco MD Discharge: Date of : 35 Report #: [id number] the patient will most likely need to be covered with both vancomycin and Zosyn pending the full culture. We will have the patient elevate her legs as much as possible as well. IMPRESSION: 1. Chronic ulcerations, bilateral lower extremities with associated cellulitis. 2. Chronic lymphedema with massive weeping edema. 3. Type 2 diabetes. 4. Morbid obesity. 5. History of noncompliance. 6. History of protein-calorie malnutrition. 7. Generalized debility. PLAN: At this time, we will do the above wound care orders. We will continue to follow the patient here. The patient in the past has been discharged to both LTAC and to SNFs. We will see how the patient progresses in her wound care and her overall general medical condition to decide for her final disposition at the time of discharge. I appreciate the ability to consult on this patient. By: [id number] Theo Beckman MD /nt
--- NOTE | ~2017-02-20 | EKG ---
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 04/10/17 0854 3 Sixot Taylor MD, [facility] /EPI
--- NOTE | ~2017-02-20 | HC ---
[facility] [place] [address] CONSULTATION Name: CHERELLE GEORGE Zaheer Room #: 403-P [facility] IN ..#: [id number] Admission: 04/08/17 Attend Phys: Robert Pacheco MD Discharge: 04/12/17 Date of : 35 Report #: [id number] THIS REPORT FOR: //name// CC: Robert Beckman DATE OF CONSULT: 04/09/2017. REASON FOR CONSULTATION: Acute kidney injury. HISTORY OF PRESENT ILLNESS: The patient is extremely well known to our service, has had multiple admissions to this hospital with an infected leg ulcers, acute kidney injury with creatinine as high as greater than 3 and typical accompanied by hyperkalemia. She has another so much episode at this point where she is admitted with infected leg ulcers with very severe denudation of the legs. Superimposed on her chronic lymphedema and elevated creatinine, I had seen the patient before 2012 and many of my partners have seen the patient as well at the time of similar admissions. PAST MEDICAL HISTORY: She has diabetes mellitus, chronic lymphedema, mild CKD, but no history proteinuria and history of multiple admissions for the same as mentioned, she has longstanding diabetes, hypertension, chronic obesity and lymphedema as mentioned. She has apparently extensive medication list, I do not believe this is fully up to date in the computer at this time, but what listed includes ascorbic acid 500 mg a day, mg of Lasix, vitamin D Restasis eyedrops, diltiazem 120 mg b.i.d., docusate, nystatin, Silvadene and I know she take case Lasix 40 mg a day and there apparently are other medications including hormone replacements, etc. not fully listed on the current medication list or home medication list. FAMILY HISTORY: Noncontributory. ALLERGIES: SULFA. SOCIAL HISTORY: She apparently lives alone. She looks confused on this issue. REVIEW OF SYSTEMS: GENERAL: She has been feeling poorly. EYES: Her vision is okay. ENT: Hearing okay, swallows okay. No mouth sores or ulcers. ENDOCRINE: Positive for the diabetes. RESPIRATORY: She is not short-winded. CARDIAC: No chest pain, angina, does have a chronic leg swelling. GASTROINTESTINAL: Denies nausea, vomiting or diarrhea. She does have some abdominal pain related to hernia. GENITOURINARY: She has good urinary stream, but occasionally has to void again, [facility] [address] [place] [address] CONSULTATION Name: CHERELLE GEORGE Room #: 403-P [facility] IN ..#: [id number] Admission: 04/08/17 Attend Phys: Robert Pacheco MD Discharge: 04/12/17 Date of : 35 Report #: [id number] soon after voiding. NEUROLOGIC: Generalized weakness. PHYSICAL EXAMINATION: GENERAL: Chronically ill-appearing woman. SKIN: She has got the denudation of her legs and skin, looks almost like a burn over the lower extremities between the knee and the ankle bilaterally, very angry looking with discharge. SKELETAL: She is rather obese. HEENT: Extraocular movements are full. Vision intact. No scleral icterus. The mucous membranes are normal. NECK: Veins are not distended. CHEST: Clear to auscultation. HEART: Regular. ABDOMEN: Obese with umbilical hernia and some tenderness. EXTREMITIES: Again, as above. NEUROLOGIC: Moving all extremities. LABORATORY DATA: Creatinine is 1.7 and BUN is 51, potassium 6.1, but EKG shows absolutely no changes. Hemoglobin is 9.6. ASSESSMENT: Acute kidney injury. Her creatinine is up after admission here, unclear as to the etiology. She typically does developed an elevated creatinine in the hospital, her sonogram in the past has been okay and she does not have documented proteinuria in the past either. She has been given some Kayexalate as this seems to be appropriate, sugars need to be controlled and I will restart her on her home furosemide. <ELECTRONICALLY SIGNED> By: Maximiliano Haro MD 04/15/17 1154 [id number] [id number] Maximiliano Haro MD /nt
[~2017-02-20 13:32] MED LIST changes: +ASPIR 8181 MG PO; +DILAUDID 2 MG TA2 MG PO; +DIPHENHIST25 M1 PO; +HYDROCODONE-AP1 EAC6 PO; +SILVADENE20 GM TOP; +VITAMIN D1000 UNI1; +ZOSYN 3.373.375 GM/1 IV
[2017-04-08 17:27] VITALS: BP 121/51
[2017-04-08 20:00] VITALS: BP 104/60
[2017-04-09 04:00] VITALS: BP 112/43
[2017-04-09 06:28] LABS: HEMATOCRIT 29.6 % (37.0-47.0); HEMOGLOBIN 9.6 gm/dL (12.0-15.0); MCH 31.1 pg (26.0-34.0); MCHC 32.5 g/dL (28.0-37.0); MCV 95.7 fL (80.0-100.0); PLATELET COUNT 190 thou/uL (150-400); RBC 3.09 mil/uL (4.20-5.00); RDW 14.1 % (10.5-14.5)
[2017-04-09 06:31] LABS: MANUAL DIFF YES
[2017-04-09 06:41] LABS: ALBUMIN 2.2 g/dL (3.4-5.0); CALCIUM 8.6 mg/dL (8.5-10.1); CREATININE 1.7 mg/dL (0.6-1.0); TOTAL BILIRUBIN 0.3 mg/dL (<0.1-1.0); TOTAL PROTEIN 6.1 g/dL (6.4-8.2)
[2017-04-09 06:47] LABS: POTASSIUM 6.1 mmol/L (3.5-5.1)
[2017-04-09 09:01] LABS: ABSOLUTE NEUTROPHILS 5.6 thou/uL (1.4-8.2); PLATELET ESTIMATE NORMAL; TOTAL CELL COUNT 100
[2017-04-09 11:44] LABS: URINE BILIRUBIN NEGATIVE (Negative); URINE BLOOD NEGATIVE (Negative); URINE COLOR YELLOW; URINE GLUCOSE-RANDOM* NEGATIVE (Negative); URINE KETONES NEGATIVE (Negative); URINE LEUKOCYTES-REFLEX NEGATIVE (Negative); URINE PROTEIN (DIPSTICK) NEGATIVE (Negative); URINE UROBILINOGEN 0.2 E.U./dl (0.2-1.0)
[2017-04-09 11:47] LABS: URINE CREATININE-RANDOM* 146.1 mg/dL; URINE POTASSIUM-RANDOM* 47.4 mmol/L
[2017-04-09 19:53] VITALS: BP 122/66
[2017-04-10 04:15] VITALS: BP 96/61
[2017-04-10 06:29] LABS: ALBUMIN 2.2 g/dL (3.4-5.0); CALCIUM 8.8 mg/dL (8.5-10.1); CREATININE 1.6 mg/dL (0.6-1.0); PHOSPHORUS 3.5 mg/dL (2.5-4.9); POTASSIUM 5.3 mmol/L (3.5-5.1)
[2017-04-10 08:22] VITALS: BP 99/45
[2017-04-10 21:37] VITALS: BP 104/57
[2017-04-11 04:51] VITALS: BP 106/41
[2017-04-11 07:30] VITALS: BP 114/56
[2017-04-11 14:05] LABS: HEMATOCRIT 28.8 % (37.0-47.0); HEMOGLOBIN 9.6 gm/dL (12.0-15.0); MCH 31.5 pg (26.0-34.0); MCHC 33.2 g/dL (28.0-37.0); MCV 94.7 fL (80.0-100.0); RBC 3.04 mil/uL (4.20-5.00); RDW 13.9 % (10.5-14.5); WBC 6.5 thou/uL (4.0-11.0)
[2017-04-11 14:20] LABS: ALBUMIN 2.1 g/dL (3.4-5.0); CALCIUM 8.9 mg/dL (8.5-10.1); PHOSPHORUS 4.3 mg/dL (2.5-4.9); POTASSIUM 4.8 mmol/L (3.5-5.1)
[2017-04-11 19:12] VITALS: BP 95/51
[2017-04-12 04:01] VITALS: BP 107/55
[2017-04-12 04:45] LABS: ALBUMIN 1.9 g/dL (3.4-5.0); CALCIUM 8.6 mg/dL (8.5-10.1); CREATININE 2.3 mg/dL (0.6-1.0); PHOSPHORUS 4.3 mg/dL (2.5-4.9); POTASSIUM 4.6 mmol/L (3.5-5.1)
[2017-04-12 08:05] VITALS: BP 110/47
[2017-04-12] MEDS ORDERED: PIPERACIL-TAZ2.25 GM IVPB (12:10)
[2017-04-12] MEDS ORDERED: normal saline IV (12:17)
[2017-04-12] MEDS ORDERED: FLOMAX0.4 MG PO (12:19)
[2017-04-12] MEDS ORDERED: NORCO 5-325 TA1 EACH PO (12:21)
== END 2017-04-12 17:11 | DRG 571 ==
LOC: HYPER 13:32 → 4N 04-08 15:50 → EDSTATUS 04-08 16:02 → HYPER 04-08 16:22 → 4N 04-12 17:11
PROVIDERS: Internal Medicine; Internal Medicine Nephrology
DX: L03.115 Cellulitis of right lower limb (principal); E44.0 Moderate protein-calorie malnutrition; N17.9 Acute kidney failure, unspecified; L97.929 Non-pressure chronic ulcer of unspecified part of left lower leg with unspecified severity; L97.919 Non-pressure chronic ulcer of unspecified part of right lower leg with unspecified severity; K42.0 Umbilical hernia with obstruction, without gangrene; N18.9 Chronic kidney disease, unspecified; E11.22 Type 2 diabetes mellitus with diabetic chronic kidney disease; I12.9 Hypertensive chronic kidney disease with stage 1 through stage 4 chronic kidney disease, or unspecified chronic kidney disease; Z60.2 Problems related to living alone; L03.116 Cellulitis of left lower limb; E66.01 Morbid (severe) obesity due to excess calories; I89.0 Lymphedema, not elsewhere classified; E87.5 Hyperkalemia; N83.201 Unspecified ovarian cyst, right side; Z68.39 Body mass index [BMI] 39.0-39.9, adult; Z88.2 Allergy status to sulfonamides; Z88.6 Allergy status to analgesic agent; Z91.14 Patient's other noncompliance with medication regimen
CPT/HCPCS: 10790; 27001

== ENCOUNTER → 2017-07-29 | Outpatient (CLI) | payer OTHER ==
[~2017-07-29] MED LIST changes: +FLOMAX0.4 MG PO; +NORCO 5-325 TA1 EACH PO; +PIPERACIL-TAZ2.25 GM IVPB; +normal saline IV
== END ==
LOC: HYPER 06:51
DX: I87.313 Chronic venous hypertension (idiopathic) with ulcer of bilateral lower extremity (principal); L97.822 Non-pressure chronic ulcer of other part of left lower leg with fat layer exposed; L97.812 Non-pressure chronic ulcer of other part of right lower leg with fat layer exposed; I48.91 Unspecified atrial fibrillation; E11.622 Type 2 diabetes mellitus with other skin ulcer; E11.36 Type 2 diabetes mellitus with diabetic cataract; M06.9 Rheumatoid arthritis, unspecified; E11.22 Type 2 diabetes mellitus with diabetic chronic kidney disease; N18.9 Chronic kidney disease, unspecified; E78.5 Hyperlipidemia, unspecified; E66.01 Morbid (severe) obesity due to excess calories; Z68.37 Body mass index [BMI] 37.0-37.9, adult; M81.0 Age-related osteoporosis without current pathological fracture

== ENCOUNTER → 2017-08-28 | Outpatient (CLI) | payer OTHER | LOC: HYPER 06:50 | DX: E11.622 Type 2 diabetes mellitus with other skin ulcer (principal); I87.313 Chronic venous hypertension (idiopathic) with ulcer of bilateral lower extremity; L97.822 Non-pressure chronic ulcer of other part of left lower leg with fat layer exposed; L97.812 Non-pressure chronic ulcer of other part of right lower leg with fat layer exposed; E11.36 Type 2 diabetes mellitus with diabetic cataract; E11.22 Type 2 diabetes mellitus with diabetic chronic kidney disease; N18.9 Chronic kidney disease, unspecified; I48.91 Unspecified atrial fibrillation; I89.0 Lymphedema, not elsewhere classified; E78.5 Hyperlipidemia, unspecified; M06.9 Rheumatoid arthritis, unspecified; M81.0 Age-related osteoporosis without current pathological fracture; E66.01 Morbid (severe) obesity due to excess calories; Z68.37 Body mass index [BMI] 37.0-37.9, adult ==

== ENCOUNTER → 2017-10-21 | Outpatient (CLI) | payer OTHER | LOC: HYPER 09-25 06:49 | DX: E11.622 Type 2 diabetes mellitus with other skin ulcer (principal); L97.221 Non-pressure chronic ulcer of left calf limited to breakdown of skin; L97.811 Non-pressure chronic ulcer of other part of right lower leg limited to breakdown of skin; I87.313 Chronic venous hypertension (idiopathic) with ulcer of bilateral lower extremity; E11.36 Type 2 diabetes mellitus with diabetic cataract; E11.22 Type 2 diabetes mellitus with diabetic chronic kidney disease; N18.9 Chronic kidney disease, unspecified; I48.91 Unspecified atrial fibrillation; E78.5 Hyperlipidemia, unspecified; I89.0 Lymphedema, not elsewhere classified; M06.9 Rheumatoid arthritis, unspecified; M81.0 Age-related osteoporosis without current pathological fracture; E66.01 Morbid (severe) obesity due to excess calories; Z68.37 Body mass index [BMI] 37.0-37.9, adult ==

== ENCOUNTER → 2017-11-18 | Outpatient (CLI) | payer OTHER | LOC: HYPER 07:04 | DX: I87.313 Chronic venous hypertension (idiopathic) with ulcer of bilateral lower extremity (principal); E11.622 Type 2 diabetes mellitus with other skin ulcer; L97.812 Non-pressure chronic ulcer of other part of right lower leg with fat layer exposed; L97.822 Non-pressure chronic ulcer of other part of left lower leg with fat layer exposed; I48.91 Unspecified atrial fibrillation; E11.36 Type 2 diabetes mellitus with diabetic cataract; E78.5 Hyperlipidemia, unspecified; I89.0 Lymphedema, not elsewhere classified; E66.01 Morbid (severe) obesity due to excess calories; Z68.37 Body mass index [BMI] 37.0-37.9, adult ==

== ENCOUNTER → 2017-12-16 | Outpatient (CLI) | payer OTHER | LOC: HYPER 06:41 | DX: E11.622 Type 2 diabetes mellitus with other skin ulcer (principal); I87.313 Chronic venous hypertension (idiopathic) with ulcer of bilateral lower extremity; L97.222 Non-pressure chronic ulcer of left calf with fat layer exposed; L97.811 Non-pressure chronic ulcer of other part of right lower leg limited to breakdown of skin; E11.36 Type 2 diabetes mellitus with diabetic cataract; E11.22 Type 2 diabetes mellitus with diabetic chronic kidney disease; I12.9 Hypertensive chronic kidney disease with stage 1 through stage 4 chronic kidney disease, or unspecified chronic kidney disease; N18.9 Chronic kidney disease, unspecified; I48.91 Unspecified atrial fibrillation; I89.0 Lymphedema, not elsewhere classified; E78.5 Hyperlipidemia, unspecified; E66.01 Morbid (severe) obesity due to excess calories; M06.9 Rheumatoid arthritis, unspecified; M81.0 Age-related osteoporosis without current pathological fracture; Z68.37 Body mass index [BMI] 37.0-37.9, adult ==

== ENCOUNTER → 2018-01-29 | Outpatient (CLI) | payer OTHER | LOC: HYPER 01-06 06:45 | DX: I87.313 Chronic venous hypertension (idiopathic) with ulcer of bilateral lower extremity (principal); E11.622 Type 2 diabetes mellitus with other skin ulcer; L97.812 Non-pressure chronic ulcer of other part of right lower leg with fat layer exposed; L97.221 Non-pressure chronic ulcer of left calf limited to breakdown of skin; I89.0 Lymphedema, not elsewhere classified; M06.9 Rheumatoid arthritis, unspecified; I48.91 Unspecified atrial fibrillation; E11.22 Type 2 diabetes mellitus with diabetic chronic kidney disease; N18.9 Chronic kidney disease, unspecified; E11.36 Type 2 diabetes mellitus with diabetic cataract; E78.5 Hyperlipidemia, unspecified; E66.01 Morbid (severe) obesity due to excess calories; M81.0 Age-related osteoporosis without current pathological fracture; Z68.38 Body mass index [BMI] 38.0-38.9, adult ==

== ENCOUNTER → 2018-03-31 | Outpatient (CLI) | payer OTHER | LOC: HYPER 06:40 | DX: I87.311 Chronic venous hypertension (idiopathic) with ulcer of right lower extremity (principal); L97.812 Non-pressure chronic ulcer of other part of right lower leg with fat layer exposed; I87.312 Chronic venous hypertension (idiopathic) with ulcer of left lower extremity; L97.222 Non-pressure chronic ulcer of left calf with fat layer exposed; I48.91 Unspecified atrial fibrillation; N18.9 Chronic kidney disease, unspecified; E78.5 Hyperlipidemia, unspecified; I89.0 Lymphedema, not elsewhere classified; E66.01 Morbid (severe) obesity due to excess calories; M81.0 Age-related osteoporosis without current pathological fracture; M06.9 Rheumatoid arthritis, unspecified; Z68.37 Body mass index [BMI] 37.0-37.9, adult ==

== ENCOUNTER 2019-12-31 11:28 | Inpatient (IN) | payer OTHER ==
[~2019-12-31] VITALS: Ht 160 cm; Wt 123.7 kg
--- NOTE | ~2019-12-31 | EMS ---
[address] [address] EMS Patient Care Report Name: CHERELLE GEROGE Room #: REG OLGA Caruso#: [id number] Admission: 12/31/19 Attend Phys: Discharge: Date of : 35 Report #: [id number] THIS REPORT FOR: //name// Report Transmitted: 12/31/2019 12:06 EMS Care Summary [facility] MED-ACT Incident [id number] @ 12/31/2019 10:49 Incident Location [address] [place] [address] Patient CHERELLE GEORGE Female, 84 Years 1935 Patient Address [address] [place] [address] Patient History Hypertension (HTN),Morbid Obesity, Patient Allergies Sulfa,Other drug allergy, Patient Medications Ramipril, Hydrocodone, Aspirin, Hydrochlorothiazide (Hctz), Zofran, Acetaminophen, Chief Complaint "She rolled off the bed and cut her leg" Disposition Transported No Lights/[place] Reason Falls Transported To [facility] Narrative Upon arrival at [facility], pt was found lying supine on the floor of her room in care [address] [address] EMS Patient Care Report Name: CHERELLE GEORGE Room #: REG OLGA Caruso#: [id number] Admission: 12/31/19 Attend Phys: Discharge: Date of : 35 Report #: [id number] of OPFD. Staff reports they were changing the pt and had her rolled to one side. Pt kept rolling and staff was unable to stop her from rolling off the bed. Pt's L leg began bleeding immediately so staff applied pressure and dressings. They were unsure what pt struck her leg on. Staff reported pt was in terrible pain, but pt reported she had no pain as long as she was not moving. Pt was very angry with the staff and was yelling at them while EMS assessed her. Pt denied hitting her head and denied other pain or injury. Initial Vitals @11:17P: 108,BP: 99/80,Temp: 98.3F,SpO2: 94, @11:08P: 109,R: 18,BP: 111/57,Pain: 0/10,GCS: 15,SpO2: 93,Revised Trauma: 12,[place] Suspected: false Assessments @11:00MENTAL:No Abnormalities,SKIN:HEENT:Head/Face: No Abnormalities,Eyes: No Abnormalities,LUNG SOUNDS:General: Other,ABDOMEN:General: Other,PELVIS//GI:EXTREMITIES:Right Leg: Other,Left Leg: Other,Left Leg: Edema,Right Leg: Edema,Left Arm: No Abnormalities,Right Arm: No Abnormalities,PULSE:NEURO:No Abnormalities, Impression Injury Timeline 10:47,Call Received 10:47,Psap Call 10:49,Dispatched 10:50,En Route 10:57,On Scene 10:59,At Patient 11:07,Depart Scene 11:08,BP: 111/57 M,PULSE: 109,RR: 18 R,SPO2: 93 Ox,ETCO2: ,BG: ,PAIN: 0,GCS: 15, 11:17,BP: 99/80 M,PULSE: 108,RR: R,SPO2: 94 Ox,ETCO2: ,BG: ,PAIN: ,GCS: , 11:18,At Destination 11:37,Call Closed Disclaimer v1.1 Copyright 2020 [employer] This EMS Care Summary contains data elements from the applicable legal record (which may be displayed differently). It is designed to provide pertinent information for the following purposes: continuity of care, clinical quality, and state data reporting. The complete legal record is available to ED staff and administrators of the receiving hospital in [employer]'s Patient Tracker. All data is provided "as is."
[2019-12-31 11:29] VITALS: BP 116/71
[2019-12-31 16:29] LABS: HEMATOCRIT 34.8 % (37.0-47.0)
[2019-12-31 16:31] LABS: CALCIUM 9.3 mg/dL (8.5-10.1); CREATININE 0.9 mg/dL (0.6-1.0); HEMOGLOBIN 11.4 gm/dL (12.0-15.0); MCH 32.4 pg (26.0-34.0); MCHC 32.8 g/dL (28.0-37.0); PLATELET COUNT 329 thou/uL (150-400); POTASSIUM 5.4 mmol/L (3.5-5.1); RBC 3.51 mil/uL (4.20-5.00); RDW 15.5 % (10.5-14.5); WBC 7.6 thou/uL (4.0-11.0)
[2019-12-31 16:37] LABS: ALBUMIN 1.9 g/dL (3.4-5.0); TOTAL BILIRUBIN 0.2 mg/dL (<0.1-1.0); TOTAL PROTEIN 6.7 g/dL (6.4-8.2)
[2019-12-31 16:53] LABS: ABSOLUTE NEUTROPHILS 5.9 thou/uL (1.4-8.2)
[2019-12-31 17:25] VITALS: BP 116/71
[2019-12-31] MEDS ORDERED: BIOFREEZE118 ML TOP (17:51)
[2019-12-31] MEDS ORDERED: COLACE100 MG PO (17:52)
[2019-12-31] MEDS ORDERED: GABAPENTIN100 MG PO (17:53)
[2019-12-31] MEDS ORDERED: SLEEP AID50 MG PO (17:53)
[2019-12-31] MEDS ORDERED: NORCO 5-325 TA1 EAC1 PO ×2 (17:54)
[2019-12-31] MEDS ORDERED: LATANOPROST 0.2.5 ML OPHTHALMIC (17:56)
[2019-12-31] MEDS ORDERED: MICONAZORB AF71 GM TOP (17:56)
[2019-12-31] MEDS ORDERED: NYSTATIN 100,0015 G1 TOP (17:57)
[2019-12-31] MEDS ORDERED: NYSTATIN15 G2 TOP (17:58)
[2019-12-31] MEDS ORDERED: REQUIP 0.25 M0.25 MG PO (17:58)
[2019-12-31] MEDS ORDERED: RESTASIS MULTI5.5 ML EA. EYE (18:00)
[2019-12-31] MEDS ORDERED: ULTRAM 50MG TAB50 MG PO (18:01)
[2019-12-31] MEDS ORDERED: TYLENOL325 M1 PO (18:01)
[2019-12-31] MEDS ORDERED: ZOFRAN ODT4 MG PO (18:02)
[2019-12-31 19:44] VITALS: BP 100/46
[2019-12-31 20:40] VITALS: BP 98/64
[2020-01-01 00:25] VITALS: BP 143/66
[2020-01-01 05:22] VITALS: BP 105/77
[2020-01-01 08:00] VITALS: BP 114/85
--- NOTE | 2020-01-01 09:14 | O ---
[facility] [place] [address] OPERATIVE REPORT Name: CHERELLE GEORGE Room #: 217-P ADM IN M.R.#: [id number] Admission: 12/31/19 Attend Phys: Bhavik Guan MD Discharge: Date of : 35 Report #: [id number] THIS REPORT FOR: cc: Hortencia Wooten MD, Lou K. MD Joseph, Sigi P. MD ~ CC: Hortencia Guan DATE OF SERVICE: 12/31/2019 PREOPERATIVE DIAGNOSIS: Large laceration of the left leg. POSTOPERATIVE DIAGNOSIS: Large laceration of the left leg. OPERATIVE PROCEDURE DONE: Primary closure of the large laceration of the left leg. OPERATING SURGEON: Saúl Javier MD INDICATIONS FOR THE PROCEDURE: The patient is an 84-year-old senior care patient who apparently had a fall and sustained a large laceration of the left leg. The patient was advised repair of the same. DESCRIPTION OF PROCEDURE: After explaining to the patient in detail and informed consent was obtained, the procedure was performed in the Emergency Room. Under sterile precaution approximately about 25 mL of 1% lidocaine with epinephrine was injected circumferentially around the laceration site. The laceration site itself measured approximately about 20 cm in total length and it has full thickness. Part of the bone was exposed. This was a Y-shaped laceration and it was very irregular, part of the skin was partly peeled off as well. Using 3-0 nylon sutures, multiple interrupted sutures were placed to approximate the deep laceration. Antibiotic cream and a nonadherent dressing was placed. The patient was stable at the end of the procedure. ESTIMATED BLOOD LOSS: Minimal. CONDITION: The patient unchanged. COMPLICATIONS: None. <ELECTRONICALLY SIGNED> By: Saúl Javier MD 01/01/20913 10 18 Saúl Javier MD /nt
[2020-01-01 15:06] VITALS: BP 111/50
[2020-01-01 19:15] LABS: HEMATOCRIT 29.1 % (37.0-47.0); HEMOGLOBIN 9.6 gm/dL (12.0-15.0); MCH 32.9 pg (26.0-34.0); MCHC 33.1 g/dL (28.0-37.0); MCV 99.6 fL (80.0-100.0); PLATELET COUNT 307 thou/uL (150-400); RBC 2.92 mil/uL (4.20-5.00); RDW 15.3 % (10.5-14.5); WBC 8.9 thou/uL (4.0-11.0)
[2020-01-01 19:23] LABS: CALCIUM 8.5 mg/dL (8.5-10.1); CREATININE 1.5 mg/dL (0.6-1.0); MAGNESIUM 1.7 mg/dL (1.8-2.4); POTASSIUM 5.6 mmol/L (3.5-5.1)
[2020-01-01 19:36] LABS: ABSOLUTE NEUTROPHILS 6.6 thou/uL (1.4-8.2); PLATELET ESTIMATE NORMAL
[2020-01-01 19:58] VITALS: BP 111/50
[2020-01-01 21:00] VITALS: BP 97/68
[2020-01-01 22:40] LABS: ICTOTEST (BILI CONFIRMATORY) Negative (Negative); URINE BILIRUBIN NEGATIVE (Negative); URINE BLOOD 2+ (Negative); URINE CLARITY CLOUDY; URINE COLOR YELLOW; URINE GLUCOSE-RANDOM* NEGATIVE (Negative); URINE KETONES 1+ (Negative); URINE NITRITE NEGATIVE (Negative); URINE PROTEIN (DIPSTICK) NEGATIVE (Negative); URINE SPECIFIC GRAVITY > 1.030 (1.005-1.035); URINE UROBILINOGEN 2 E.U./dl (0.2-1.0)
[2020-01-01 22:41] LABS: CASTS None Seen /LPF (None Seen); MUCUS 0-3 Light strn/LPF (None Seen); SQUAMOUS 4-10 Moderate /LPF (0-3); URINE WBC >25 Many /HPF (0-5)
[2020-01-01 22:42] LABS: AMORPHOUS URATES Moderate /LPF (None Seen); TRANSITIONAL EPITHEL CELL 0-3 Few /LPF (None Seen); WBC CLUMPS Many (None Seen)
[2020-01-02 00:24] LABS: URINE LEUKOCYTES 2+ (Negative)
[2020-01-02 05:18] VITALS: BP 111/78
[2020-01-02 08:00] VITALS: BP 106/40
--- NOTE | 2020-01-02 11:19 | HC ---
[facility] [place] [address] CONSULTATION Name: CHERELLE GEORGE Room #: 217-P ADM IN M.R.#: [id number] Admission: 12/31/19 Attend Phys: Bhavik Guan MD Discharge: Date of : 35 Report #: [id number] THIS REPORT FOR: cc: Hortencia Wooten MD, Lou K. MD Jetmore, Allen B. MD ~ CC: Hortencia Guan DATE OF SERVICE: 01/01/2020 WOUND CARE CONSULTATION REASON FOR CONSULTATION: Traumatic laceration of left leg, venous stasis ulceration of right leg, fungal dermatitis of posterior legs and thighs. HISTORY OF PRESENT ILLNESS: The patient is an 84-year-old resident of [facility]. She is a known wound care patient of Dr. Beckman and Dr. Veliz in the past. She has been treated for cellulitis and wounds of her lower extremity chronically by Dr. Beckman, but recently has been having wound care in the facility. She was at [facility] and sustained a skin laceration of her left leg with a fall from her bed. This apparently has been sutured in the ED prior to hospital admission. The patient has a history of venous stasis of the lower extremities and fungal dermatitis. Wound Care is consulted. PAST MEDICAL HISTORY: Atrial fibrillation, lymphedema, venous stasis ulceration of lower extremities, glaucoma. PAST SURGICAL HISTORY: Hernia surgery, rotator cuff surgery. ALLERGIES: SULFA. MEDICATIONS: Include aspirin, nystatin powder, diphenhydramine, diltiazem, Tylenol, tamsulosin, piperacillin, gabapentin, hydrocodone, latanoprost, Requip, Restasis, Ultram, Zofran. REVIEW OF SYSTEMS: Immobility. PHYSICAL EXAMINATION: GENERAL: Shows an alert, conversant, elderly woman who is a good historian. HEENT: Mucous membranes are moist. NECK: Supple. ABDOMEN: Obese. EXTREMITIES: Lower extremity exam shows diffuse fungal dermatitis of the posterior legs and thighs in their dependent portion. This is a red scaly rash [facility] [address] [place] [address] CONSULTATION Name: CHERELLE GEORGE Zaheer Room #: 217-P [facility] IN M.R.#: [id number] Admission: 12/31/19 Attend Phys: Bhavik Guan MD Discharge: Date of : 35 Report #: [id number] with well-demarcated borders and appears chronic. Examination of the left leg shows an avulsion-type skin laceration of the left anterolateral calf measuring approximately 18 x 4 cm. There is an avulsed flap of skin, which has been tacked sutured back in place with nylon sutures. This appears at least partially viable, avulsion-type laceration appears relatively superficial. Examination of the right leg shows chronic venous stasis ulceration over a wide area of the right posterior thigh, which appears chronic. Pulses are not palpated in the feet. IMPRESSION: 1. Obesity. 2. Immobility. 3. Traumatic avulsion-type skin laceration of the left leg with suture repair. 4. Chronic venous stasis ulceration and inflammation of right leg. 5. Fungal dermatitis and posterior right legs and thighs. PLAN: Topical nystatin powder to the areas of fungal dermatitis. Gentamicin 1% ointment to the area of the laceration and venous stasis covered with Xeroform and Kerlix wrap. We will continue IV antibiotic cefazolin. We will order arterial Dopplers of the lower extremities, case compression is needed to assess arterial supply. We will observe the area of avulsed-type laceration of the left leg for viability of the repaired skin flap. Wound care team will follow. I will change her dressing tomorrow. <ELECTRONICALLY SIGNED> By: Basil Quan MD 01/02/20 1119 [id number] [id number] Basil Quan MD /nt
[2020-01-02 11:25] VITALS: BP 139/78
--- NOTE | 2020-01-02 11:28 | HC ---
[facility] [place] [address] CONSULTATION Name: CHERELLE HOLT Room #: 217-P ADM IN Davy.Kristin.#: [id number] Admission: 12/31/19 Attend Phys: Bhavik Guan MD Discharge: Date of : 35 Report #: [id number] THIS REPORT FOR: cc: Hortencia Wooten MD, Lou K. MD Fried, John S. MD ~ CC: Hortencia Guan DATE OF SERVICE: 01/01/2020 CONSULTATION: Infectious diseases. HISTORY OF PRESENT ILLNESS: Ms Holt is an 84-year-old white female who was admitted to the hospital with a wound on her left leg. The patient weighs approximately 274 pounds and is cared for in [facility]. From the ambulance notes, I understand they were trying to reposition the patient and had a rolled on her side. She began to roll and they were not able to stop her, so she just rolled out of bed. She immediately had pain and bleeding from her left calf. She was brought to the Emergency Room where a Y shaped 20 cm wound with significant shearing of the skin proximally, was noted. The surgeon thought there may be exposed bone. The wound was closed primarily in the ER under local anesthesia with sutures. The surgeon noted that he anticipated that in the proximal part of the incision, which was somewhat Y shaped with a degloving type shear of the skin, he anticipated skin necrosis, but was going to suture this down for at least a temporary covering. Infectious Disease consultation has been requested to assist with further evaluation and management. PAST MEDICAL HISTORY: Significant for obesity, stasis, low back pain, atrial fibrillation, hyperlipidemia, and glaucoma. ALLERGIES: THE PATIENT HAS ALLERGY TO SULFA AND STATES SHE DOES NOT TOLERATE LUI WRAPS OR COBAN WRAPS FOR STASIS. FAMILY HISTORY: Noncontributory. SOCIAL HISTORY: The patient is a intermediate resident. She is . She does not use tobacco nor alcohol. REVIEW OF SYSTEMS: GENERAL: The patient is somewhat uncomfortable and irritable, but does not appear to be in any distress. ENT: The patient denies any complaints. CHEST: The patient denies cough, chest pain, or shortness of breath. GASTROINTESTINAL: The patient denies nausea, vomiting, diarrhea, constipation. [facility] [address] [place] [address] CONSULTATION Name: CHERELLE HOLT Room #: 217-P [facility] IN ..#: [id number] Admission: 12/31/19 Attend Phys: Bhavik Guan MD Discharge: Date of : 35 Report #: [id number] GENITOURINARY: No complaints. EXTREMITIES: Pain in both legs, left worse than right. PHYSICAL EXAMINATION: GENERAL: The patient appears her stated age, alert, oriented, not in any distress. VITAL SIGNS: Normal. She is afebrile. HEENT: ENT examination suggests that she probably has some hearing deficits. Communication is somewhat difficult with face mask on because of the COVID-19 pandemic. The head and neck is otherwise unremarkable. HEART LUNGS AND ABDOMEN: Unremarkable except for exogenous obesity. EXTREMITIES: The lower extremities demonstrate chronic stasis changes. They are erythematous with some dyshidrotic flaking skin. The wound was undressed and examined. It appears superficial with a fair amount of skin loss near the proximal end of the incision. I could not appreciate any pulses in the feet. Capillary refill is reasonable. In addition, the patient has refused arterial Doppler. IMPRESSION: Traumatic wound in the setting of chronic venous stasis, no sign of cellulitis at this time. I would like to continue antibiotics with cefazolin for now. We can discontinue the vancomycin. I would like to check a zinc level, TSH level and a BNP to look for any metabolic impediments to wound healing. We can do an MRSA swab of the nares to see if the patient is a chronic carrier. The legs will need wound care as well as treatment for the edema and stasis. Arterial studies to be very helpful to make sure there is adequate arterial circulation. Elevation and compression will be helpful. The patient has a body habitus, which would be at risk for sleep apnea. This could also contribute to edema in the legs. If it has not been tested and addressed, this may be something to consider while she is here in the hospital. Therapeutically, in addition to wound care, I have ordered protein supplements and zinc supplements. We will continue the patient on cefazolin for now. <ELECTRONICALLY SIGNED> By: Ethan Estevez MD 01/02/20 1128 [id number] Ethan Estevez MD /nt
[2020-01-02 12:00] VITALS: BP 88/71
[2020-01-02 13:46] VITALS: BP 102/65
[2020-01-02 16:00] VITALS: BP 105/85
[2020-01-03 04:45] VITALS: BP 110/82
[2020-01-03 07:00] LABS: HEMATOCRIT 23.2 % (37.0-47.0); HEMOGLOBIN 7.8 gm/dL (12.0-15.0); MCH 33.6 pg (26.0-34.0); MCHC 33.9 g/dL (28.0-37.0); MCV 99.2 fL (80.0-100.0); RBC 2.34 mil/uL (4.20-5.00); RDW 15.2 % (10.5-14.5); WBC 6.1 thou/uL (4.0-11.0)
[2020-01-03 07:01] LABS: PLATELET COUNT 220 thou/uL (150-400)
[2020-01-03 07:53] LABS: ALBUMIN 1.7 g/dL (3.4-5.0); CALCIUM 7.9 mg/dL (8.5-10.1); CREATININE 1.6 mg/dL (0.6-1.0); MAGNESIUM 1.7 mg/dL (1.8-2.4); POTASSIUM 5.8 mmol/L (3.5-5.1); TOTAL BILIRUBIN 0.2 mg/dL (<0.1-1.0); TOTAL PROTEIN 5.1 g/dL (6.4-8.2)
[2020-01-03 08:00] VITALS: BP 117/82; BP 138/82
[2020-01-03 11:08] LABS: ABSOLUTE NEUTROPHILS 4.5 thou/uL (1.4-8.2); ANISOCYTOSIS SLIGHT
[2020-01-03 12:45] VITALS: BP 124/64
[2020-01-03 13:08] LABS: KAPPA/LAMBDA RATIO 1.1 (0.26-1.65); LAMBDA FREE LIGHT CHAINS 77.6 mg/L (5.7-26.3)
[2020-01-03 17:00] VITALS: BP 108/65
[2020-01-03 17:08] LABS: GLOBULIN TOTAL 3.3 g/dL (2.2-3.9); M-SPIKE Not Observed g/dL (Not Observed)
[2020-01-03 20:26] VITALS: BP 133/101
[2020-01-04 05:24] VITALS: BP 91/72
[2020-01-04 08:32] VITALS: BP 100/51
[2020-01-04 17:38] VITALS: BP 93/52
[2020-01-04 20:58] VITALS: BP 121/91
[2020-01-05 04:03] VITALS: BP 136/90
[2020-01-05 07:26] VITALS: BP 123/66
[2020-01-05 14:16] VITALS: BP 102/57
[2020-01-05 19:05] VITALS: BP 149/77
[2020-01-06 07:49] VITALS: BP 113/52
[2020-01-06 11:25] VITALS: BP 113/52
[2020-01-06] MEDS ORDERED: LASIX 40 MG TAB40 M2 PO (12:21)
[2020-01-06] MEDS ORDERED: FLOMAX0.4 MG PO (12:21)
[2020-01-06] MEDS ORDERED: CARDIZEM60 MG PO (12:21)
== END 2020-01-06 17:26 | DRG 579 ==
LOC: ER 11:28 → 2N 17:14 → EROBS 17:14 → 2N 19:54 → 4W 01-04 17:56
PROVIDERS: Hospitalist; Nurse Practitioner; Physician Assistant; ADMIT Internal Medicine
PROC: 0JQP0ZZ Repair Left Lower Leg Subcutaneous Tissue and Fascia, Open Approach (ICD-10-PCS; principal; 2019-12-31)
DX: S81.812A Laceration without foreign body, left lower leg, initial encounter (principal); E43 Unspecified severe protein-calorie malnutrition; L03.116 Cellulitis of left lower limb; L03.115 Cellulitis of right lower limb; N17.9 Acute kidney failure, unspecified; I48.0 Paroxysmal atrial fibrillation; E66.01 Morbid (severe) obesity due to excess calories; E78.5 Hyperlipidemia, unspecified; G89.29 Other chronic pain; M54.9 Dorsalgia, unspecified; E87.5 Hyperkalemia; I87.2 Venous insufficiency (chronic) (peripheral); R33.9 Retention of urine, unspecified; G62.9 Polyneuropathy, unspecified; S81.802A Unspecified open wound, left lower leg, initial encounter; B36.9 Superficial mycosis, unspecified; I95.9 Hypotension, unspecified; B95.8 Unspecified staphylococcus as the cause of diseases classified elsewhere; Z79.01 Long term (current) use of anticoagulants; Z88.2 Allergy status to sulfonamides; Z88.8 Allergy status to other drugs, medicaments and biological substances; Z91.19 Patient's noncompliance with other medical treatment and regimen; W06.XXXA Fall from bed, initial encounter; Y93.89 Activity, other specified; Y92.89 Other specified places as the place of occurrence of the external cause; Y99.8 Other external cause status
CPT/HCPCS: 10047; 10081; 62110; 62900